=== PATIENT | female | born 1940 | race Caucasian/White ===

== ENCOUNTER 2022-07-24 12:32 | Inpatient (IN) | payer OTHER ==
--- OUTSIDE RECORDS SUMMARY | 2022-07-24 12:35 | XMS REPORT | Continuity of Care Document ---
:[address] [facility] t Address [address] [place] [address]. [address] [place] [address] Care Team Providers Name Role Phone ISABELLE MILES MD Primary Care Physician Anna Enrique RN Attending Clinician KEYONNA YUAN Attending Clinician Unavailable UNKNOWN, ATTENDING Attending Clinician Unavailable Zoe Patterson Attending Clinician Catherine Guerra Attending Clinician MAGGY FRANCO Attending Clinician Unavailable Payers Payer Name Policy Type Policy Effective Date Expiration Date Sour ce Number AETNA MEDICARE [id number] 2019 ADV 00:00:00 Aetna Medicare [id number] [address] [facility] [address] [facility] Problems Condition Condition Condition Status Onset Resolution Last Treating Co mments Source Name Details Category Date Date Treatment Clinician Date Pneumonia Pneumonia Disease Active 2020 Uni vers due to due to 11-13 ity of COVID-19 COVID-19 00:00: [place] virus virus [address] [place] [address] Essential Essential Disease Active 2020- Uni vers hypertensi hypertensi 11-13 it y of on on 00:00: [address] Branch Other Other Disease Active 2020- Univers hyperlipid hyperlipid 11-13 it y of emia emia 00:00: [address] Hypoxia Hypoxia Disease Active 2020- Univers 7-06 ity of 00:00: [place] 00 Medical Branch Acute Acute Disease Active [facility] respirator respirator 7 it y of y failure y failure 00:00: [place] with with 00 Medical hypoxia hypoxia Branch Breast Breast Disease Active Overview: Univer s cancer cancer s/p ity of double [place] mastectom Medical y Branch No known No known Disease Unive rs active active ity of problems problems [place] [facility] 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 Active Problem 09/22/2018 Vamshi Meyers AVNRT (AV AVNRT (AV Diagnosis Active 2018-09-22 Memoria mariusz mariusz 02:45:19 l re-entry re-entry Adam n tachycardi tachycardi a) a) Active Diagnosis 09/22/2018 Vamshi Meyers 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 [place] extremitie extremitie s with s with other other complicati complicati ons ons Active Diagnosis 09/22/2018 Vamshi Meyers 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 M emoria tic 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 Active Problem 09/22/2018 Vamshi Meyers 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 Active Problem 09/22/2018 Vamshi Meyers Essential Essential Diagnosis Active 2018-09-22 Memoria hypertensi hypertensi 02:45:19 l on on Active [place] Diagnosis 09/22/2018 Vamshi Meyers Palpitatio Palpitati Diagnosis Active 2018-09-22 Memoria ns ons Active 02:45:19 l Diagnosis [place] 09/22/2018 Vamshi Meyers Abnormal Abnormal Diagnosis Active 2018-09-22 Memoria EKG EKG Active 02:45:19 l Diagnosis [place] 09/22/2018 Vamshi Meyers Venous Venous Diagnosis Active 2018-09-22 Me moria insufficie insufficie 02:45:19 l ncy ncy Active Adam n Diagnosis 09/22/2018 Vamshi Meyers Precordial Precordia Diagnosis Active 2018-09-22 Memoria pain l pain 02:45:19 l Active [place] Diagnosis 09/22/2018 Vamshi Meyers Non morbid Non Diagnosis Active 2018-09-22 Memoria obesity morbid 02:45:19 l due to obesity [place] excess due to calories excess calories Active Diagnosis 09/22/2018 Vamshi 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 Active Problem 09/22/2018 Vamshi Meyers Exertional Exertiona Problem Active 2018-09-22 Memoria dyspnea l dyspnea 02:45:19 l Active [place] Problem 09/22/2018 Vamshi Meyers 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 02:45:19 l Active [place] Problem 09/22/2018 Vamshi Meyers History of History Problem Active 2018-09-22 Memoria VT of [place] 02:45:19 l (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 ) ) Active Problem 09/22/2018 Vamshi Meyers Patient Patient Diagnosis Active 2018-09-22 Memoria unable to unable to 02:45:19 l exercise exercise Adam n Active Diagnosis 09/22/2018 Vamshi Meyers Allergies, Adverse Reactions, Alerts Allergy Allergy Status Severity Reaction(s) Onset Inactive Treating Comm ents Source Name Type Date Date Clinician Codeine Propensi Active Hallucinatio 2020-0 U nivers ty to ns 6 ity of adverse 00:00: [place] reaction 00 Medical s Branch Meperidi Propensi Active Hallucinatio 2020-0 Univers ne ty to ns 11-05 ity of adverse 00:00: [place] reaction 00 Medical s Branch Penicill Propensi Active Hives 2019-0 Univer s in ty to 11-05 ity of adverse 00:00: [place] reaction 00 Medical s Branch CODEINE DRUG Active Hallucinates 2019-0 Uni vers INGREDI 11-05 ity of 00:00: [place] 00 Medical Branch MEPERIDI DRUG Active Hallucinates 2020-0 Un linda NE INGREDI 11-05 ity of 00:00: [place] 00 Medical Branch PENICILL DRUG Active Hives Univers IN INGREDI 11-05 ity of 00:00: [place] 00 Medical Branch Metformi Metformi Active Diarrhea Phillip rosa n HCl n HCl 2-22 l 00:00: [place] 00 Codeine Codeine Active Info Not Memori a Available 3-09 l 00:00: [place] 00 Codeine Allergy Active [facility] NO KNOWN Drug Active Univers ALLERGIE Class ity of S [facility] Social History Social Habit Start Date Stop Date Quantity Comments Source Sex Assigned At [facility] Exposure to Yes [facility] SARS-CoV-2 (event) [facility] Alcohol intake 2019-11-14 2019-11-14 [facility] 00:00:00 00:00:00 Medical [place] Smoking Status Start Date Stop Date Source Unknown if ever smoked [facility] Former smoker 2019-11-14 00:00:00 2019-11-14 00:00:00 [facility] Medications Ordered Filled Start Stop Current Ordering Indication Dosage Frequency Signature Comments Components Source Medication Medication Date Date Medication? Clinician (SIG) Name Name aspirin 81 2019-0 Yes [id number] 81mg Take 1 Univers mg chewable 7-10 tablet by ity of tablet 00:00: mouth [place] 00 daily with Medical breakfast. Branch cholecalcif 2019-0 Yes [id number] 2000U Take 2 Univers arthur, 7-10 tablets by ity of vitamin D3, 00:00: mouth [place] 25 mcg 00 daily. Medical (1,000 Branch unit) tablet busPIRone 2019-0 Yes 15mg Take 15 mg Un linda 15 mg 7-09 by mouth 2 ity of tablet 23:10: (two) [place] 37 times Medical daily. Branch clopidogreL 2019-0 Yes 75mg Take 75 mg Univers 75 mg 7-09 by mouth ity of tablet 23:10: daily. [address] omeprazole 2019-0 Yes 20mg Take 20 mg U nivers 20 mg 7-09 by mouth ity of capsule 23:10: daily. [address] metoprolol 2019-0 Yes 12.5mg Take 12.5 Univers tartrate 25 7-09 mg by ity of mg tablet 23:10: mouth [place] 37 daily. Medical Branch escitalopra 2020-0 Yes 10mg Take 10 mg Univers m oxalate 7-09 by mouth ity of 10 mg 23:10: at [place] tablet 37 bedtime. Medical Branch lisinopril- 2020-0 Yes 1{tbl} Take 1 Un linda hydrochloro 7-09 tablet by ity of thiazide 23:10: mouth [place] 10-12.5 mg 37 daily. Medical per tablet Branch donepezil 2020-0 Yes 10mg Take 10 mg Un linda 10 mg 7-09 by mouth ity of tablet 23:10: at [place] 37 bedtime. Medical Branch memantine 2019-0 Yes 5mg Take 5 mg Uni vers (NAMENDA) 5 7-09 by mouth 2 it y of mg tablet 23:10: (two) [place] 37 times Medical daily. Branch ascorbic 2020-0 Yes [id number] 500mg Take 1 U nivers acid, 7- tablet by ity of vitamin C, 00:00: mouth [place] 500 mg 00 daily. Medical tablet Branch lactobacill 2019-0 Yes [id number] 1{tbl} Take 1 Univers us 7- tablet by ity of acidophilus 00:00: mouth 2 Félix as 25 million 00 (two) Medical cell -100 times Branch mg captab daily. zinc 2020-0 Yes [id number] 220mg Take 1 Unive rs sulfate 220 7- capsule by it y of (50) mg 00:00: mouth [place] capsule 00 daily. Medical Branch dexAMETHaso 2019-0 Yes [id number] 4mg Take 1 Univers ne 4 mg 7- tablet by ity of tablet 00:00: mouth [place] 00 daily. Medical Branch KCL 20 mEq 2020-0 2020- No [id number] 40meq Take 2 Univers tablet 11-15 07-15 tablets by ity of 00:00: 04:59 mouth [place] 00 :00 daily for Medical 5 days. Branch albuterol 2019-0 Yes [id number] 2{puff} Inhale 2 Univers 90 6-29 Puffs ity of mcg/actuati 00:00: every 6 Félix as on inhaler 00 (six) Medical hours as Branch needed for Shortness of Breath. albuterol 2019-0 Yes [id number] 2{puff} Inhale 2 Univers 90 6-29 Puffs ity of mcg/actuati 00:00: every 6 Félix as on inhaler 00 (six) Medical hours as Branch needed for Shortness of Breath. albuterol Yes [id number] 2{puff} Inhale 2 Univers 90 6-29 Puffs ity of mcg/actuati 00:00: every 6 Félix as on inhaler 00 (six) Medical hours as Branch needed for Shortness of Breath. albuterol Yes [id number] 2{puff} Inhale 2 Univers 90 6-29 Puffs ity of mcg/actuati 00:00: every 6 Félix as on inhaler 00 (six) Medical hours as Branch needed for Shortness of Breath. Escitalopra Yes Mohamed 1 tablet Memoria m Oxalate 5-16 [place]i l 02:45: [place] [id number] Yes Mohamed not Phillip rosa 5-16 [place] defined l 02:45: [place] Aspirin Yes Mohamed 1 tablet Mem oria Adult Low 5-16 [place] l Strength 02:45: [place] Oxybutynin Yes Mohamed 1 tablet Memoria Chloride 5-16 [place] l 02:45: [place] Levocetiriz Yes Mohamed 1 tablet Memoria ine 5-16 [place] in the l Dihydrochlo 02:45: evening Her [address] 19 Lisinopril- 2018- Yes Mohamed 1 tablet Memoria Hydrochloro 5-16 [place] l thiazide 02:45: [place] Plavix Yes Mohamed 1 tablet Phillip rosa 5-16 [place] l 02:45: [place] Metoprolol Yes Mohamed 1/2 half Memoria Tartrate 5-16 [place] tablet l 02:45: [place] Atorvastati Yes Mohamed 1 tablet Memoria n Calcium 5-16 [place] l 02:45: [place] BusPIRone Yes Ahmad 1 tablet Mem oria HCl 5-16 [place] l 02:45: [place] 10 Oxybutynin 2016- Yes Mohamed 1 tablet Memoria Chloride 9-02 [place] l 02:46: [place] 44 Venlafaxine Yes Mohamed 1 capsule Memoria HCl ER 01-09 [place] with food l 02:46: 44 Omeprazole Yes Mohamed 1 capsule Memoria 01-09 [place] l 02:46: 44 GlipiZIDE Yes Mohamed 1 tablet M emoria ER 01-09 [place] l 02:46: Je[place] 44 Losartan Yes Mohamed 1 tablet Me moria Potassium-H 01-09 Jer[place]i l CTZ 02:46: 44 [id number] Yes Mohamed not Phillip rosa 01-09 Jeroudi defined l 02:46: 44 Aspirin Yes Mohamed 1 tablet Mem oria Adult Low 01-09 [place] l Strength 02:46: 44 Aspirin Aspirin Yes [address] [facility] (Valeriano) 81 (Valeriano) 81 Antolin es Mg Mg Patient Tablet. Tablet. Medic al Center Gabapentin Gabapentin Yes [address] 300 Mg 300 Mg [facility] Capsule Capsule Patient [facility] Lansoprazol Lansoprazol Yes [address] [facility] (Prevacid) (Prevacid) Pat ient 30 Mg 30 Mg Medical Capsule. Capsule. Tess ter Losartan/Hy Losartan/Hy Yes [address] drochloroth drochloroth L ukes iazide iazide Patient (Hyzaar (Hyzaar Medical 50-12.5 50-12.5 Center Tablet) 1 Tablet) 1 Each Tablet Each Tablet Metformin Metformin Yes [address] [facility] Hcl 1,000 Hcl 1,000 Day [facility] Mg Tablet Mg Tablet [facility] Metformin Metformin Yes Daily [facility] Hcl 1,000 Hcl 1,000 [facility] Mg Tablet Mg Tablet [facility] Oxybutynin Oxybutynin Yes [facility] Chloride 5 Chloride 5 Antolin es Mg Tablet Mg Tablet [facility] Oxybutynin Oxybutynin Yes Twice A [facility] Chloride Chloride Day [facility] (Ditropan (Ditropan [facility] Xl) 5 Mg Xl) 5 Mg Medical Tab.er.24 Tab.er.24 Cente r Venlafaxine Venlafaxine Yes Daily [facility] Hcl [facility]cl [facility] (Effexor (Effexor Patient Xr) 75 Mg Xr) 75 Mg Medic al Cap.er.24h Cap.er.24h Tess ter Darifenacin Darifenacin Daily [facility] Hydrobromid Hydrobromid -10 [facility] e (Enablex) e (Enablex) 00:00 Patient 7.5 Mg 7.5 Mg :00 Medical Tab.sr.24h, Tab.sr.24h, C enter 1 Tab Oral 1 Tab Oral Duloxetine Duloxetine Daily [facility] Hcl Hcl -10 [facility] (Cymbalta) (Cymbalta) 00:00 Pa tient 60 Mg 60 Mg :00 Medical Capsule., Capsule., C enter 1 Tab Oral 1 Tab Oral Fexofenadin Fexofenadin Daily [facility] e Hcl e Hcl 08-17 [facility] (Kaylah (Kaylah 00:00 Patien t Allergy) 60 Allergy) 60 :00 M edical Mg Tablet, Mg Tablet, Tess ter 1 Tab Oral 1 Tab Oral Losartan/Hy Losartan/Hy Daily [facility] drochloroth drochloroth 08-17 [facility] iazide iazide 00:00 Patient (Losartan-H (Losartan-H :00 M edical ctz 50-12.5 ctz 50-12.5 C enter Mg Tab) 1 Mg Tab) 1 Each Each Tablet, 1 Tablet, 1 Tab Oral Tab Oral Vital Signs Vital Name Observation Time Observation Value Comments Source [facility] 2018-02-22 19:30[facility] 2018-02-22 19:30:00 [facility] [place] Temperature Oral (F) 2018-02-22 19:30:00 97.4 F [facility] [place] Heart Rate 2018-02-22 19:30:00 [facility] [place] Diastolic (mm Hg) 2018-02-22 19:30:00 Mem orial [place] Systolic (mm Hg) 2018-02-22 19:30:00 Phillip rial [place] Weight 2017-11-22 20:00:00 [facility] [place] Height 2017-11-22 20:00:00 [facility] [place] Temperature Oral (F) 2017-11-22 20:00:00 98.2 F [facility] [place] Heart Rate 2017-11-22 20:00:00 [facility] [place] Diastolic (mm Hg) 2017-11-22 20:00:00 Mem orial [place] Systolic (mm Hg) 2017-11-22 20:00:00 Phillip rial [place] Weight 2017-08-02 19:00:00 [facility] [place] Height 2017-08-02 19:00:00 [facility] [place] Temperature Oral (F) 2017-08-02 19:00:00 98.3 F [facility] [place] Heart Rate 2017-08-02 19:00:00 [facility] [place] Diastolic (mm Hg) 2017-08-02 19:00:00 Mem orial [place] Systolic (mm Hg) 2017-08-02 19:00:00 Phillip rial [place] Weight 2017-07-01 19:30:00 [facility] [place] Height 2017-07-01 19:30:00 [facility] [place] Temperature Oral (F) 2017-07-01 19:30:00 97.6 F [facility] [place] Heart Rate 2017-07-01 19:30:00 [facility] [place] Diastolic (mm Hg) 2017-07-01 19:30:00 Mem orial [place] Systolic (mm Hg) 2017-07-01 19:30:00 Phillip rial [place] Weight 2015-07-17 18:00:00 [facility] [place] Height 2015-07-17 18:00:00 [facility] [place] Temperature Oral (F) 2015-07-17 18:00:00 96.1 F [facility] [place] Heart Rate 2015-07-17 18:00:00 [facility] [place] Diastolic (mm Hg) 2015-07-17 18:00:00 Mem orial [place] Systolic (mm Hg) 2015-07-17 18:00:00 Phillip rial [place] Weight 2015-06-27 19:00:00 [facility] [place] Height 2015-06-27 19:00:00 [facility] [place] Temperature Oral (F) 2015-06-27 19:00:00 97.8 F [facility] [place] Heart Rate 2015-06-27 19:00:00 [facility] [place] Diastolic (mm Hg) 2015-06-27 19:00:00 Mem orial [place] Systolic (mm Hg) 2015-06-27 19:00:00 Phillip rial [place] Procedures Procedure Date / Time Performed Performing Clinician Sourc e XR CHEST 2 VW COVID 2019-11-06 14:41:41 Sammy Longayru [facility] Magnetic resonance 2017-09-10 00:00:00 MAGGY FRANCO [facility] Patient imaging of lumbar [facility] Center spine without contrast Encounters Start End Encounter Admission Attending Care Care Encounter Source Date/Time Date/Time Type Type Clinicians Facility Department ID 2022-07-24 Outpatient [id number] Memoria 12:34:40 [id number] [place] [id number] 2021-03-07 Emergency [facility] [id number] [facility] 04:54:20 ity [facility] 2019-11-17 2019-11-17 Transition Adele Enrique [id number] 00:00:00 00:00:00 of Care Anna Whalen [id number] [place] [id number] [id number] [facility] 2019-11-17 2019-11-17 Transition Adele Enrique [id number] Univers 00:00:00 00:00:00 of Care Anna Whalen [id number] it y of [place] [id number] [id number] [address] 2019-11-13 2019-11-13 Outpatient R KEYONNA YUAN [facility] [id number] Univers 16:00:00 16:00:00 ity [facility] 2019-11-13 2019-11-13 Outpatient R LAURA, [facility] [id number] Univers 13:15:00 13:15:00 ATTENDING ity [facility] 2019-11-07 2019-11-07 Telephone Kaity [facility] [id number] 00:00:00 00:00:00 [facility] [id number] [place] [id number] [facility] [id number] Primary & 370 Specialty Care 2019-11-07 2019-11-07 Telephone [facility] [id number] 00:00:00 00:00:00 Rania HEALTH [id number] [place] [id number] [facility] [id number] Primary & 370 Specialty Care 2019-11-07 2019-11-07 Telephone [facility] [id number] Univers 00:00:00 00:00:00 Rania HEALTH [id number] it y of [place] [id number] [facility] [id number] [facility] Primary & 370 Branch Specialty Care 2019-11-07 2019-11-07 Telephone [facility] [id number] Univers 00:00:00 00:00:00 Rania HEALTH [id number] it y of [place] [id number] [facility] [id number] [facility] Primary & 370 Branch Specialty Care 2019-11-06 2019-11-06 [facility] [id number] 09:26:00 23:59:00 [facility] [id number] [facility] [id number] [id number] [address] ([facility]) 2019-11-06 2019-11-06 [facility] [id number] Univers 09:26:00 23:59:00 [facility] [id number] [facility] [id number] [facility] [id number] [address] ([facility]) 2019-11-06 2019-11-06 Outpatient R UNKNOWN, [facility] [id number] Univers 09:00:00 09:00:00 ATTENDING ity of [facility] 2018-02-22 2018-02-22 Outpatient Vasmhi Goldstein [id number] eClinic 14:30:00 14:30:00 Mira [place] 2018-01-24 2018-02-06 Discharged [facility] [id number] 10:07:00 23:59:[address] 2017-11-22 2017-11-22 Outpatient Vamshi Goldstein [id number] eClinic 15:00:00 15:00:00 Mira [place] 2017-11-11 2017-11-11 Outpatient Vamshi Bonds O [id number] eClinic 16:27:00 16:27:00 Mira [place] 2017-09-10 2017-09-10 Registered HANSA FRANCO, [facility] [id number] 13:32:00 13:32:[address] 2017-08-02 2017-08-02 Outpatient Vamshi Bonds O [id number] eClinic 14:00:00 14:00:00 Mira [place] 2017-07-01 2017-07-01 Outpatient Vamshi Bonds O [id number] eClinic 14:30:00 14:30:00 Mira [place] 2015-07-17 2015-07-17 Outpatient Vamshi Bonds O [id number] eClinic 13:00:00 13:00:00 Mira [place] 2015-06-27 2015-06-27 Outpatient Vamshi Bonds O [id number] eClinic 14:00:00 14:00:00 Mira [place] Results Test Test Test Results Result Source Description Time Comments Comments XR CHEST 2 VW 2019-10 Trace bilateral pleural University COVID -29 effusions. Disclaimer: [facility] 20:46:2 Generally, the findings on Medical 2 chest imaging in COVID-19 are Branch notspecific, and overlap with other infections, including influenza, H1N1,SARS and MERS.According to the Centers for Disease Control (CDC) and recent statement ofthe [employer], viral testing remains the only specificmethod of diagnosis. Confirmation with the viral test is required, even ifradiologic findings are suggestive of COVID-[address]. Preliminary Report Dictated by Resident: Martina Longoria MD., have reviewed this study and agree with theabove report.XR CHEST 2 VW COVID Comparison: None available History: cough and sob Findings: Mild bibasilar linear opacities are noted suggesting atelectasis. No focalconsolidation, or pneumothorax is identified. Trace bilateral pleuraleffusions. The cardiomediastinal silhouette is normal in size. Atheroscleroticossifications are noted in the aortic arch. No acute osseous abnormality is present. Surgical clips are scattered overthe right axillary soft tissues. [facility], Radiant Results Inft User - 11/06/2019 3:47 PM CDTXR CHEST 2 VW COVIDComparison: None availableHistory: cough and sob Findings:Mild bibasilar linear opacities are noted suggesting atelectasis. No focalconsolidation, or pneumothorax is identified. Trace bilateral pleuraleffusions.The cardiomediastinal silhouette is normal in size. Atheroscleroticossifications are noted in the aortic arch.No acute osseous abnormality is present. Surgical clips are scattered overthe right axillary soft tissues.IMPRESSIONTrace bilateral pleural effusions.Disclaimer: Generally, the findings on chest imaging in COVID-19 are notspecific, and overlap with other infections, including influenza, H1N1,SARS and MERS.According to the Centers for Disease Control (CDC) and recent statement ofthe [employer], viral testing remains the only specificmethod of diagnosis. Confirmation with the viral test is required, even ifradiologic findings are suggestive of COVID-[address]Preliminary Report Dictated by Resident: Martina Arana MD., have reviewed this study and agree with theabove report. MRI SPINE [place] [address] Patient Name: CALIXTO LANG MR #: [id number] : 1940 Age/Sex: 76/F Req #: [id number] Adm Physician: Ordered by: MAGGY FRANCO MD Report #: [id number] Location: MRI Room/Bed: Procedure: [id number] MRI/MRI SPINE LUMBAR WO Exam Date: Exam Time: REPORT STATUS: Signed EXAMINATION: MRI of the lumbar spine without contrast HISTORY: Low back pain for the last 3 months. COMPARISON: None. TECHNIQUE: Sagittal T1, T2, STIR; axial T2 and proton density. FINDINGS: It is assumed that there are 5 lumbar vertebrae. Curvature/Alignment: Normal distal lumbar lordosis, mild thoracolumbar kyphotic malalignment. Grade 1 retrolisthesis at T12-L1, L1 to and minimal anterolisthesis at L3-L4 and L5-S1. Subtle levoscoliosis. Vertebrae: No evidence of recent fracture, infection, or neoplasm. Conus: Normal, terminating at L2 Cauda equina: Mild crowding at L1-2 and L2-L3 due to canal stenosis. Lower thoracic: Mild spondylosis without significant stenosis. Paraspinal soft tissues: Severe atrophy of the paraspinal muscles. Degenerative changes: L1-L2: Decreased disc height and T2 signal intensity, symmetric disc osteophyte and bilateral facet arthrosis. Moderately severe spinal canal and bilateral foraminal stenosis. L2-L3: Decreased disc height and T2 signal intensity, symmetric this pole which, ligamenta flava thickening of facet arthrosis. Moderate spinal canal and bilateral foraminal stenoses. L3-L4: Decreased disc height and T2 signal intensity, slightly asymmetric to the right is posterior, ligamenta flava thickening and facet arthrosis. Mild spinal canal and mild to moderate bilateral foraminal stenosis. L4-L5: Decreased disc height and T2 signal intensity, symmetric disc osteophyte and facet arthrosis. Moderate bilateral foraminal stenoses. L5-S1: Decreased disc height and signal intensity, mild symmetric disc bulge, prominent facet arthrosis. Minimal bilateral foraminal stenosis. Sacroiliac joints: Bilateral degenerative changes with bridging osteophytes in the right side. IMPRESSION: 1. Mild thoracolumbar kyphotic malalignment and minimal multilevel degenerative spondylolisthesis as above. 2. Moderately severe degenerative spinal canal and bilateral foraminal stenosis at L1-L2. 3. Moderate degenerative spinal canal and bilateral foraminal stenosis at L2-L3. 4. Mild degenerative spinal canal and moderate foraminal stenoses at L3-L4. 5. Moderate degenerative foraminal stenosis at L4-L5. Signed by: Dr. Nicky Ratliff M.D. on 09/13/2017 7:18 AM Dictated By: NICKY RATLIFF MD 7 Transcribed By: XUAN on 09/13/17717 COPY TO: MAGGY FRANCO MD
--- NOTE | 2022-07-24 12:54 | RAD REPORT ---
EXAM DESCRIPTION: CT - CTHCSPWOC - 07/24/2022 12:45 pm CLINICAL HISTORY: Trauma, head and neck injury. PAIN COMPARISON: No comparisons TECHNIQUE: Axial 5 mm thick images of the head were obtained. Axial 2 mm thick images of the cervical spine were obtained with sagittal and coronal reconstruction images generated and reviewed. All CT scans are performed using dose optimization technique as appropriate and may include automated exposure control or mA/KV adjustment according to patient size. FINDINGS: CT HEAD WITHOUT CONTRAST: No acute hemorrhage, hydrocephalus or extra-axial collection is identified.Mild generalized brain atr ophy is present with mild periventricular and deep white matter chronic microvascular ischemic change s.No areas of brain edema or midline shift. Inspissated mucus is seen right maxillary antrum.The calvarium is intact. CT CERVICAL SPINE WITHOUT CONTRAST: No fracture or subluxation.Moderate midcervical degenerative changes. 3 mm degenerative anterolisthes is C2 on C3.No prevertebral soft tissues swelling is identified. IMPRESSION: No acute intracranial or cervical spine findings. Moderate midcervical degenerative changes.
[2022-07-24 13:43] LABS: Absolute Lymphocytes (CBC) 0.8 K/uL (0.7-4.9); Hematocrit 40.4 % (36.0-45.0); Lymphocytes % 17.7 % (15.3-44.8); MCV 89.4 fL (80-100); MPV 7.6 fL (7.6-11.3); RBC Red Blood Cell Count 4.52 M/uL (3.86-4.86)
[2022-07-24 14:35] LABS: Potassium 2.7 mEq/L (3.5-5.1); Troponin High Sensitivity 7.7 pg/mL (<58.9)
[2022-07-24] MEDS ORDERED: POTASSIUM CL SA 10 MEQ TAB PO ONE (14:52)
[2022-07-24] MEDS ORDERED: NA CHLORIDE 0.9% 1,000 ML ONE (14:52)
--- NOTE | 2022-07-24 14:58 | ER ---
Nurse's Notes [facility] Name: Deborah Dumont Age: 81 yrs Sex: Female : 1940 Arrival Date: 07/24/2022 Time: 12:33 Bed 19 Private MD: Diagnosis: Fall on same level from slipping, tripping and stumbling without subsequent striking against object;Dizziness and giddiness;Unspecified injury of head, initial encounter;Hypokalemia;Hyponatremia Presentation: 07/24 12:34 Chief complaint: EMS states: Fall from standing just prior to arrival at [facility]. Denies LOC. Hit back of head. +blood thinners. Care prior to arrival: None. Mechanism of Injury: Fall from standing position. Trauma event details: Injury occurred: [facility]. 12:34 Acuity: MUKUND 2 12:34 Method Of Arrival: EMS: [facility] 12:36 Coronavirus screen: Client denies travel out of the [place] in the last 14 days. Ebola ss Screen: Patient denies exposure to infectious person. Patient denies travel to an Ebola-affected area in the 21 days before illness onset. Initial Sepsis Screen: Does the patient meet any 2 criteria? No. Patient's initial sepsis screen is negative. Does the patient have a suspected source of infection? No. Patient's initial sepsis screen is negative. Risk Assessment: Do you want to hurt yourself or someone else? Patient reports no desire to harm self or others. Onset of symptoms was July 24, 2022. Trauma Activation: Alert Physician: ED Physician; Name: ; Notified At: ; Arrived At: Physician: General Surgeon; Name: ; Notified At: ; Arrived At: Physician: Radiology; Name: ; Notified At: ; Arrived At: Physician: Respiratory; Name: ; Notified At: ; Arrived At: Physician: Lab; Name: ; Notified At: ; Arrived At: Trauma Activation: Alert Physician: ED Physician; Name: ; Notified At: ; Arrived At: Physician: General Surgeon; Name: ; Notified At: ; Arrived At: Physician: Radiology; Name: ; Notified At: ; Arrived At: Physician: Respiratory; Name: ; Notified At: ; Arrived At: Physician: Lab; Name: ; Notified At: ; Arrived At: Historical: - Allergies: 13:26 Codeine; kc6 - PMHx: 13:26 Dementia; Alzheimer's disease; kc6 - Immunization history: Last tetanus immunization: unknown. - Social history:: Smoking status: unknown. Screenin:00 Abuse screen: Denies threats or abuse. Denies injuries from another. ss 12:30 Tuberculosis screening: No symptoms or risk factors identified. kc6 13:26 [facility] ED Fall Risk Assessment (Adult) History of falling in the last 3 months, kc6 including since admission Yes- single mechanical fall (1 pt) Confusion or Disorientation Yes (5 pts) Intoxicated or Sedated No (0 pts) Impaired Gait No (0 pts) Mobility Assist Device Used No (0 pt) Altered Elimination No (0 pt) Score/Fall Risk Level 3 or more points = High Risk Oriented to surroundings, Maintained a safe environment, Educated pt \T\ family on fall prevention, incl call for assistance when getting out of bed, Assessed \T\ reinforced patient's understanding of fall precautions, Hourly rounding (assess needs \T\ fall precautionary measures) done. Nutritional screening: No deficits noted. Primary Survey: 12:00 NO uncontrolled hemorrhage observed. A: The client is awake and alert. The airway is ss patent. Disability Client is alert. 12:30 Breathing/Chest: Spontaneous respiratory effort, equal unlabored respirations, breath kc6 sounds clear bilaterally, regular pattern, symmetrical chest rise and fall. Circulation: No external hemorrhage present. Regular and strong central pulse, skin warm/dry/normal color. Exposure/Environment: There is no evidence of uncontrolled external bleeding. A warming method has been applied: A warm blanket has been provided to the patient. 14:25 Reassessment Alertness and Airway: Awake and alert. The airway is patent. Breathing: kc6 Spontaneous respiratory effort, equal unlabored respirations, breath sounds clear bilaterally, regular pattern with symmetrical chest rise and fall. Circulation: No external hemorrhage noted. Regular and strong central pulse, skin warm/dry/normal color. Disability: Pupils Pupils are equal, round, reactive to light and accomodation. Secondary Survey: 12:30 HEENT: No deficits noted. Gastrointestinal: No deficits noted. : No signs and/or kc6 symptoms were reported regarding the genitourinary system. Musculoskeletal: No signs and/or symptoms reported regarding the musculoskeletal system. Circulation, motion, and sensation intact. Capillary refill < 3 seconds, Range of motion: intact in all extremities. Assessment: 12:30 General: Appears in no apparent distress. uncomfortable, Behavior is calm, cooperative, kc6 appropriate for age. Pain: Complains of pain in head. 12:30 Neuro: [place] Agitation-Sedation Scale (RASS): 0 - Alert and Calm Level of kc6 Consciousness is awake, alert, obeys commands, Oriented to person, situation, Appropriate for age. Cardiovascular: Capillary refill < 3 seconds Rhythm is sinus bradycardia. Respiratory: Airway is patent Trachea midline Respiratory effort is even, unlabored, Respiratory pattern is symmetrical, tachypnea Breath sounds with wheezes bilaterally. GI: No signs and/or symptoms were reported involving the gastrointestinal system. : No signs and/or symptoms were reported regarding the genitourinary system. EENT: No signs and/or symptoms were reported regarding the EENT system. Derm: Skin is intact, Skin is pink, warm \T\ dry. Musculoskeletal: No signs and/or symptoms reported regarding the musculoskeletal system. Circulation, motion, and sensation intact. Capillary refill < 3 seconds, Range of motion: intact in all extremities. 12:39 Reassessment: Pt to CT now VIA EMS stretcher. ss Vital Signs: 12:30 BP 110 / 47; Pulse 63; Resp 21 S; Pulse Ox 99% on 2 lpm NC; Weight 85.28 kg (M); Height kc6 5 ft. 6 in. (R); 14:26 BP 127 / 69; Pulse 56; Resp 16 S; Pulse Ox 98% on 2 lpm NC; kc6 12:30 Body Mass Index 30.34 (85.28 kg, 167.64 cm) kc6 [place] Coma Score: 12:30 Eye Response: spontaneous(4). Motor Response: obeys commands(6). Verbal Response: kc6 confused(4). Total: 14. Trauma Score (Adult): 12:30 Eye Response: spontaneous(1); Verbal Response: confused(1); Motor Response: obeys kc6 commands(2); Systolic BP: > 89 mm Hg(4); Respiratory Rate: 10 to 29 per min(4); Bulmaro Score: 14; Trauma Score: 12 ED Course: 12:30 Patient has correct armband on for positive identification. Bed in low position. Call kc6 light in reach. Side rails up X2. 12:30 Oxygen administration via nasal cannula \T\ 2L/min. kc6 12:33 Patient arrived in ED. ss 12:36 Rekha Rubin FNP-C [facility] kb 12:36 Prashant De Los Santos MD is Attending Physician. kb 12:36 Triage completed. ss 12:36 Arm band placed on right wrist. ss 12:46 CT Head C Spine In Process Unspecified. EDMS 12:56 Evelyn Dsouza, RN is Primary Nurse. kc6 13:27 Thermoregulation: warm blanket given to patient. kc6 13:45 Inserted saline lock: 20 gauge in right antecubital area, using aseptic technique. kc6 Blood collected. 14:57 Edwin Ewing MD is Hospitalizing Provider. kb Administered Medications: 14:51 Drug: NS 0.9% IV 1000 ml Route: IV; Rate: 75 ml/hr; Site: right antecubital; kc6 14:52 Drug: Potassium Chloride PO 40 mEq Route: PO; kc6 Outcome: 14:58 Decision to Hospitalize by Provider. kb Signatures: Dispatcher [employer] EDNJ Rekha Rubin FNP-C FNP-Rehana Ramirez RN RN Evelyn Dsouza, MIA RN kc6 Corrections: (The following items were deleted from the chart) 12:44 12:00 Trauma Activation: Alert ss 14:25 12:30 General: Appears in no apparent distress. uncomfortable, Behavior is calm, kc6 cooperative, appropriate for age, kc6
--- NOTE | 2022-07-24 14:59 | EDPHYS ---
Physician Documentation [facility] Name: Deborah Dumont Age: 81 yrs Sex: Female : 1940 Arrival Date: 07/24/2022 Time: 12:33 Bed 19 Private MD: ED Physician Prashant De Los Santos Historical: - Allergies: 07/24 13:26 Codeine; kc6 - PMHx: 13:26 Dementia; Alzheimer's disease; kc6 - Immunization history: Last tetanus immunization: unknown. - Social history:: Smoking status: unknown. ROS: 14:42 Constitutional: Negative for fever, chills, and weight loss. kb 14:42 Neuro: Positive for dizziness, headache. 14:42 All other systems are negative. Exam: 14:08 Constitutional: This is a well developed, well nourished patient who is awake, alert, kb and in no acute distress. 14:08 ECG was reviewed by the Attending Physician. Vital Signs: 12:30 BP 110 / 47; Pulse 63; Resp 21 S; Pulse Ox 99% on 2 lpm NC; Weight 85.28 kg (M); Height kc6 5 ft. 6 in. (R); 14:26 BP 127 / 69; Pulse 56; Resp 16 S; Pulse Ox 98% on 2 lpm NC; kc6 12:30 Body Mass Index 30.34 (85.28 kg, 167.64 cm) kc6 [place] Coma Score: 12:30 Eye Response: spontaneous(4). Motor Response: obeys commands(6). Verbal Response: kc6 confused(4). Total: 14. Trauma Score (Adult): 12:30 Eye Response: spontaneous(1); Verbal Response: confused(1); Motor Response: obeys kc6 commands(2); Systolic BP: > 89 mm Hg(4); Respiratory Rate: 10 to 29 per min(4); Bulmaro Score: 14; Trauma Score: 12 MDM: 12:36 Patient medically screened. kb 07/24 12:38 Order name: CT Head C Spine; Complete Time: 12:55 kb 07/24 12:56 Order name: EKG; Complete Time: 12:56 kb 07/24 12:56 Order name: EKG - Nurse/Tech; Complete Time: 13:14 kb 07/24 13:06 Order name: CBC with Diff; Complete Time: 14:03 kb 07/24 13:48 Order name: Labs - recollect needed; Complete Time: 14:04 ss 07/24 13:06 Order name: Basic Metabolic Panel; Complete Time: 14:39 kb 07/24 13:06 Order name: Troponin High Sensitivity; Complete Time: 14:39 kb EC:08 Rate is 56 beats/min. Rhythm is regular. QRS [place] is Normal. LA interval is prolonged kb at 224 msec. QRS interval is normal at 114 msec. QT interval is prolonged at 501 msec. Administered Medications: 14:51 Drug: NS 0.9% IV 1000 ml Route: IV; Rate: 75 ml/hr; Site: right antecubital; kc6 14:52 Drug: Potassium Chloride PO 40 mEq Route: PO; kc6 Disposition: 14:25 Co-signature as Attending Physician, Prashant De Los Santos MD I reviewed the patient's care rt provided by the Advanced Practice Provider and agree with the diagnosis and treatment plan. Disposition Summary: 07/24/22 14:58 Hospitalization Ordered Hospitalization Status: Observation kb Provider: Edwin Ewing Location: Telemetry/MedSurg (observation) kb Condition: Stable kb Problem: new kb Symptoms: are unchanged kb Bed/Room Type: Standard kb Room Assignment: kb Diagnosis - Fall on same level from slipping, tripping and stumbling without subsequent kb striking against object - Dizziness and giddiness kb - Unspecified injury of head, initial encounter kb - Hypokalemia kb - Hyponatremia kb Forms: - Medication Reconciliation Form kb - SBAR form kb Signatures: Dispatcher [employer] Rekha Garcia, FAMILIA SANDHU-Rehana Ramirez RN RN Evelyn Dsouza RN RN kc6 Prashant De Los Santos MD MD rt
[2022-07-24] MEDS ORDERED: IPRATROPIUM BROM 0.5MG/2.5ML ONE (15:05)
[2022-07-24] MEDS ORDERED: ALBUTEROL 2.5 MG/3 ML NEB SOL ONE (15:05)
[2022-07-24 15:50] LABS: SARS-CoV-2 Antigen Rapid Res Negative (Negative)
[2022-07-24] MEDS ORDERED: ONDANSETRON 4 MG/2 ML VIAL IV PRN (16:05)
[2022-07-24] MEDS ORDERED: ACETAMINOPHEN 500 MG TAB PO PRN (16:05)
[2022-07-24 16:07] LABS: Urine Blood Negative (Negative); Urine Glucose Negative (Negative); Urine Protein Negative (Negative)
--- NOTE | 2022-07-24 16:15 | P.HP ---
Certification for Inpatient Patient admitted to: Observation With expected LOS: <2 Midnights Patient will require the following post-hospital care: Prison Practitioner: I am a practitioner with admitting privileges, knowledge of patient current condition, hospital course, and medical plan of care. Services: Services provided to patient in accordance with Admission requirements found in Title 42 Section 412.3 of the Code of Federal Regulations <Abundio Syed - Last Filed: 07/24/22 18:05> Patient History Date of Service: 07/24/22 Reason for admission: Dyzziness, hyponatremia, hypokalemia, fall History of Present Illness: This is an 81-year-old female with past medical history significant for dementia and Alzheimer's. Patient was brought into the emergency room from [facility] for complaints of dizziness,/fall. Patient was evaluated in the ED, unable to obtain history due to patient's baseline dementia. In the ED her lab was significant for hyponatremia with sodium of 125 and hypokalemia with potassium of 2.7. Urinalysis was ordered and patient was found to have a UTI. Patient will be admitted under the care of Dr. Ewing. - Past Medical/Surgical History Past Medical History: Unable to obtain Past Surgical History: Unable to obtain - Social History Smoking Status: Unknown if ever smoked Place of Res[place] <Abundio Syed - Last Filed: 07/24/22 18:05> Date of Service: 07/24/22 <Edwin Ewing - Last Filed: 07/24/22 19:16> Allergies codeine Allergy (Unknown, Unverified 07/24/22 16:25) UNKNOWN Review of Systems is unable to be obtained <Abundio Syed - Last Filed: 07/24/22 18:05> Physical Examination - Vital Signs Blood Pressure: 126/63 Pulse: 61 Respirations: 18 Pulse Ox (%): 100 - Physical Exam General: Confused HEENT: Atraumatic, Normocephalic, PERRLA Neck: Supple Respiratory: Crackles/rales, Expiratory wheezes Cardiovascular: No edema Capillary refill: <2 Seconds Gastrointestinal: Normal bowel sounds Musculoskeletal: No clubbing, No swelling, No contractures Integumentary: No rashes, No breakdown Neurological: Dementia Lymphatics: No axilla or inguinal lymphadenopathy - Studies Laboratory Data (last 24 hrs) 07/24/22 14:03: Sodium 125 L, Potassium 2.7 L, BUN 10, Creatinine 0.58, Glucose 115 H 07/24/22 13:36: WBC 4.80, Hgb 14.1, Hct 40.4, Plt Count 169 <Abundio Syed - Last Filed: 07/24/22 18:05> - Studies Laboratory Data (last 24 hrs) 07/24/22 14:03: Sodium 125 L, Potassium 2.7 L, BUN 10, Creatinine 0.58, Glucose 115 H 07/24/22 13:36: WBC 4.80, Hgb 14.1, Hct 40.4, Plt Count 169 <Edwin wEing - Last Filed: 07/24/22 19:16> Assessment and Plan - Plan Assessment Status post fall UTI Dizziness Hyponatremia Hypokalemia Dementia Alzheimer's Plan Replete potassium Continue IV fluids BMP every 4 Continue IV antibiotics Resume medication from correction once verified Continue nebulizer treatments with IV steroids Continue IV Lasix Chest x-ray pending Nephrology consulted DVT PPX- Lovenox Discharge Plan: [place]-Way Plan to discharge in: 48 Hours - Advance Directives Does patient have a Living Will: No Does patient have a Durable POA for Healthcare: No Critical Care: No Time Spent Managing Pts Care (In Minutes): 50 <Abundio Syed - Last Filed: 07/24/22 18:05> Physician Review: Patient Assessed, Agree with Above Assessment and Plan <Edwin Ewing - Last Filed: 07/24/22 19:16>
[2022-07-24 16:25] LABS: Specific Gravity 1.008 (1.005-1.030); Urine Bacteria <20 /HPF (<20); Urine Bilirubin NEGATIVE (Negative); Urine Blood Negative (Negative); Urine Clarity Clear (Clear); Urine Color Light-Yellow (Yellow); Urine Crystals Unidentified Few /HPF (None Seen); Urine Glucose NEGATIVE (Negative); Urine Mucus Slight /HPF (None Seen); Urine Protein NEGATIVE (Negative); Urine RBC <5 /HPF (None Seen); Urine Urobilinogen Normal (Normal); Urine WBC Clump Rare /HPF (None Seen); Urine pH 6.5 (5.0-7.0)
[2022-07-24] MEDS ORDERED: INSULIN -REGULAR HUMAN 50 UNIT/0.5 ML ML SQ SCH (16:30)
[2022-07-24] MEDS ORDERED: NA CHLORIDE 0.9% 1,000 ML IV SCH (17:00)
[2022-07-24] MEDS ORDERED: FUROSEMIDE 40 MG/4 ML VIAL IV SCH (17:00)
[2022-07-24 18:23] LABS: Potassium 2.7 mEq/L (3.5-5.1)
--- NOTE | 2022-07-24 19:10 | RAD REPORT ---
EXAM DESCRIPTION: RAD - Chest Single View - 07/24/2022 7:05 pm CLINICAL HISTORY: Wheezing/crackles Chest pain. COMPARISON: No comparisons FINDINGS: Portable technique limits examination quality. Mild pulmonary edema. The heart is mildly to moderately enlarged. No displaced fractures.Right axilla ry dissection. IMPRESSION: Mild CHF versus volume overload.
[2022-07-24] MEDS: ALBUTEROL 2.5 MG/3 ML NEB SOL NEB SCH (19:50)
[2022-07-24] MEDS: METHYLPREDNISOLONE 40 MG INJ IV SCH (20:28)
[2022-07-24] MEDS: CEFTRIAXONE 1,000 MG in NA CHLORIDE 0.9% 50 ML IVPB SCH (20:33)
[2022-07-24 20:53] LABS: Potassium 2.8 mEq/L (3.5-5.1)
[2022-07-24] MEDS ORDERED: ATORVASTATIN 40 MG TAB PO SCH (21:00)
[2022-07-24] MEDS ORDERED: APIXABAN 2.5 MG TABLET PO SCH (21:00)
[2022-07-24] MEDS ORDERED: POTASSIUM 25 MEQ EFFERV TAB PO ONE (23:10)
[2022-07-24] MEDS ORDERED: KCL 20 MEQ/100 mL IVPB 20 MEQ/100 ML BAG IV SCH (23:45)
[2022-07-25] MEDS: ALBUTEROL 2.5 MG/3 ML NEB SOL NEB SCH ×4 (01:35→20:40)
[2022-07-25 01:56] VITALS: BMI 30.1
[2022-07-25] MEDS: METHYLPREDNISOLONE 40 MG INJ IV SCH ×2 (01:59→10:24)
[2022-07-25] MEDS ORDERED: POTASSIUM CL SA 10 MEQ TAB PO ONE (06:28)
[2022-07-25] MEDS ORDERED: KCL 20 MEQ/100 mL IVPB 20 MEQ/100 ML BAG IV SCH (07:00)
[2022-07-25 07:21] LABS: Potassium 3.2 mEq/L (3.5-5.1)
[2022-07-25] MEDS ORDERED: ASPIRIN EC 81 MG TAB PO SCH (09:00)
[2022-07-25] MEDS ORDERED: POTASSIUM 25 MEQ EFFERV TAB PO ONE ×2 (09:00→21:00)
[2022-07-25] MEDS: CEFTRIAXONE 1,000 MG in NA CHLORIDE 0.9% 50 ML IVPB SCH ×2 (10:24→20:35)
[2022-07-25] MEDS: ENOXAPARIN 40 MG/0.4 ML SQ SCH (10:24)
[2022-07-25] MEDS: SPIRONOLACTONE 25 MG TABLET PO SCH (10:25)
--- NOTE | 2022-07-25 12:08 | P.CNS ---
Date of Consult: 07/25/22 Reason for Consult: Hyponatremia, hypokalemia Requesting Physician: Edwin Ewing Primary Care Provider: Sean Chief Complaint: Dyzziness, hyponatremia, hypokalemia, fall History of Present Illness: This is an 81-year-old female who is a poor historian but per the records with past medical history significant for dementia and Alzheimer's. Patient was brought into the emergency room from [facility] for reports of dizziness/fall. In the ED her lab was significant for hyponatremia with sodium of 125 and hypokalemia with potassium of 2.7. Urinalysis was ordered and patient was found to have a UTI. Patient will be admitted under the care of Dr. Ewing. Allergies codeine Allergy (Unknown, Verified 07/25/22 01:57) UNKNOWN Home Medications: Acetaminophen [Tylenol] 2 tab PO Q6H PRN 07/25/22 Atorvastatin Calcium [Lipitor] 20 mg PO BEDTIME 07/25/22 Buspirone HCl [Buspar] 30 mg PO BID 07/25/22 Cholestyramine (with Sugar) [Cholestyramine Packet] 4 gm PO DAILY 07/25/22 Clopidogrel Bisulfate [Plavix] 75 mg PO DAILY 07/25/22 Donepezil HCl [Aricept] 10 mg PO BEDTIME 07/25/22 Escitalopram Oxalate 20 mg PO DAILY 07/25/22 Lisinopril [Zestril] 10 mg PO DAILY 07/25/22 Loperamide HCl [Imodium A-D] 2 mg PO DAILY 07/25/22 Loratadine [Claritin] 10 mg PO DAILY 07/25/22 Lutein/Zeaxanthin [Ocuvite Lutein 25-5 mg Softgel] 1 each PO BID 07/25/22 Mag Hydroxide 8% [Milk Of Magnesia] 30 ml PO DAILY PRN 07/25/22 Melatonin 5 mg PO BEDTIME 07/25/22 Memantine HCl 10 mg PO DAILY 07/25/22 Metoprolol Tartrate 0.5 tab PO DAILY 07/25/22 Multivitamin [Multiple Vitamins] 1 each PO DAILY 07/25/22 Pantoprazole Sodium 1 tab PO DAILY 07/25/22 Vitamin E [E-Vitamin] 400 iu PO DAILY 07/25/22 hydroCHLOROthiazide [Hydrochlorothiazide] 25 mg PO DAILY 07/25/22 - Past Medical/Surgical History Diabetic: No -: dementia -: Alzheimer's -: Arnold mastectomy -: hysterectomy -: appendectomy - Social History Smoking Status: Unknown if ever smoked Place of Residence: [facility] Review of Systems is unable to be obtained (Limited ROS due to pt's underlying dementia) Physical Examination Temp Pulse Resp BP Pulse Ox 97.1 F 78 14 153/80 H 97 07/25/22 08:00 07/25/22 10:25 07/25/22 08:00 07/25/22 10:25 07/25/22 08:00 General: In no apparent distress, Cooperative HEENT: Atraumatic, Normocephalic Neck: Supple Respiratory: Other (Poor resp effort, poor air entry into lower lung ketn, scattered wheezes) Cardiovascular: No edema, Regular rate/rhythm Gastrointestinal: Soft and benign, Non-distended, No tenderness Musculoskeletal: No swelling, No contractures Integumentary: No warmth, Other (xerosis) Neurological: Normal speech, Other, Dementia Laboratory Data (last 24 hrs) 07/24/22 14:03: Sodium 125 L, Potassium 2.7 L, BUN 10, Creatinine 0.58, Glucose 115 H 07/24/22 13:36: WBC 4.80, Hgb 14.1, Hct 40.4, Plt Count 169 Conclusions/Impression: A/P) 1. Hyponatremia in the setting of mild hypovolemia, thiazide diuretic use, other -Na level has promptly improved to > 130 on isotonic IVF, rate of correction acceptable. Keep off HCTZ, did d/c IVF 2. Hypokalemia, severe in the setting of thiazide diuretic use, possible poor intake, other. Repleting, did d/c IV lasix ordered by admitting team and will place on Spironolactone for K retention and as a gentle diuretic for any diastolic dysfunction 3. Chronic HTN -BP mod elevated post IVF, will resume lower dose ACEi 4. Dizziness per reports -likely multifactorial and in the setting of the above mentioned, med changes made. Cristino Beauchamp MD, PADMINI
[2022-07-25] MEDS: lisinopriL 5 MG TAB PO SCH (13:51)
--- NOTE | 2022-07-25 15:37 | P.PN ---
Subjective Date of Service: 07/25/22 Primary Care Provider: Sean Chief Complaint: Dyzziness, hyponatremia, hypokalemia, fall She was seen on rounds this morning alongside bedside RN, Dedra. No acute events overnight per RN. She appears comfortable and is in no acute distress. No further history is available at this time. Review of Systems is unable to be obtained Physical Examination - Vital Signs Temperature: 97.4 F Blood Pressure: 144/70 Pulse: 96 Respirations: 16 Pulse Ox (%): 95 - Physical Exam General: Alert, In no apparent distress, Oriented x1 HEENT: Atraumatic, Mucous membr. moist/pink, Sclerae nonicteric Neck: JVD not distended Respiratory: Clear to auscultation bilaterally, Normal air movement Cardiovascular: No edema, Regular rate/rhythm, Normal S1 S2, No gallops, No rubs, No murmurs Gastrointestinal: Normal bowel sounds, Soft and benign, Non-distended, No tenderness, No rebound, No guarding Musculoskeletal: No clubbing Integumentary: No rashes Neurological: Normal speech, Normal affect, Dementia Assessment And Plan - Plan # Generalized Weakness complicated by Mechanical Ground-Level Fall # Suspected Urinary Tract Infection - Weakness likely multifactorial from dehydration, hyponatremia, and UTI - UA = positive nitrite, 1+ leukocyte esterase - Currently without sepsis criteria - Continue ceftriaxone - Consult PT # Hypovolemic Hyponatremia # Hypokalemia - Nephrology consulted and spoke with Dr. Beauchamp - recommendations appreciated - Hold hydrochlorothiazide - Replace potassium as needed - IV fluids per Neph # Hypertension - Continue lisinopril, spironolactone # Alzheimer's Dementia - Reconcile home medications once verified Edwin Ewing M.D.
[2022-07-26] MEDS: ALBUTEROL 2.5 MG/3 ML NEB SOL NEB SCH ×4 (01:25→20:00)
[2022-07-26 07:08] LABS: Potassium 3.2 mEq/L (3.5-5.1)
[2022-07-26] MEDS ORDERED: POTASSIUM 25 MEQ EFFERV TAB PO ONE (09:00)
[2022-07-26] MEDS: CEFTRIAXONE 1,000 MG in NA CHLORIDE 0.9% 50 ML IVPB SCH ×2 (09:09→19:59)
[2022-07-26] MEDS: ENOXAPARIN 40 MG/0.4 ML SQ SCH (09:09)
[2022-07-26] MEDS: lisinopriL 5 MG TAB PO SCH (09:18)
[2022-07-26] MEDS: SPIRONOLACTONE 25 MG TABLET PO SCH (09:18)
--- NOTE | 2022-07-26 10:46 | P.PN ---
Subjective Date of Service: 07/26/22 Primary Care Provider: Sean Chief Complaint: Dyzziness, hyponatremia, hypokalemia, fall No acute events overnight per RN. She appears comfortable and is in no acute distress. Her sodium levels have improved. Her urine culture returned positive for 4+ gram-negative rods. Awaiting culture + sensitivities. Review of Systems is unable to be obtained Physical Examination - Vital Signs Temperature: 97.7 F Blood Pressure: 138/64 Pulse: 72 Respirations: 20 Pulse Ox (%): 97 Assessment And Plan - Plan - Physical Exam General: Alert, In no apparent distress, Oriented x1 HEENT: Atraumatic, Mucous membr. moist/pink, Sclerae nonicteric Neck: JVD not distended Respiratory: Clear to auscultation bilaterally, Normal air movement Cardiovascular: No edema, Regular rate/rhythm, No murmurs Gastrointestinal: Normal bowel sounds, Soft, Non-distended, No tenderness Musculoskeletal: No clubbing Integumentary: No rashes Neurological: Normal speech, Normal affect, Dementia # Generalized Weakness complicated by Mechanical Ground-Level Fall # Gram-Negative Urinary Tract Infection - Weakness likely multifactorial from dehydration, hyponatremia, and UTI - Currently without sepsis criteria - UA = positive nitrite, 1+ leukocyte esterase - UCx = 4+ gram-negative rods - awaiting speciation + sensitivities - Continue ceftriaxone - narrow once sensitivities return - Consult PT # Hypovolemic Hyponatremia - improved # Hypokalemia - Nephrology consulted and spoke with Dr. Beauchamp - recommendations appreciated - Hold hydrochlorothiazide - Replace potassium as needed - IV fluids per Neph # Hypertension - Continue lisinopril, spironolactone # Alzheimer's Dementia - Reconcile home medications once verified Edwin Ewing M.D.
[2022-07-27] MEDS: ALBUTEROL 2.5 MG/3 ML NEB SOL NEB SCH ×2 (01:30→08:20)
[2022-07-27 03:55] LABS: Magnesium 2.3 mg/dL (1.6-2.4); Phosphorus 3.3 mg/dL (2.5-4.9); Potassium 3.5 mEq/L (3.5-5.1)
[2022-07-27] MEDS ORDERED: POTASSIUM CL SA 10 MEQ TAB PO ONE (09:00)
[2022-07-27] MEDS: ENOXAPARIN 40 MG/0.4 ML SQ SCH (09:16)
[2022-07-27] MEDS: CEFTRIAXONE 1,000 MG in NA CHLORIDE 0.9% 50 ML IVPB SCH (09:17)
[2022-07-27] MEDS: SPIRONOLACTONE 25 MG TABLET PO SCH (09:17)
[2022-07-27] MEDS: lisinopriL 5 MG TAB PO SCH (09:18)
[2022-07-27 12:18] VITALS: O2SAT 92
[2022-07-27 13:29] VITALS: BP 145/79; TEMP 97
--- NOTE | 2022-07-27 17:42 | EKG ---
Test Date: 2022-07-24 Test Time: 13:06:55 Consumer Loan Officer: BLACK MEASUREMENT RESULTS: Intervals: Rate: 56 MT: 224 QRSD: 114 QT: 520 QTc: 501 [place]: P: 87 MT: 224 QRS: -70 T: 35 INTERPRETIVE STATEMENTS: Sinus bradycardia with 1st degree AV block Pulmonary disease pattern Left anterior fascicular block Prolonged QT Abnormal ECG No previous ECG available for comparison Electronically Signed On 07-27-22 17:37:10 CDT by Donta Fair
--- NOTE | 2022-07-27 21:56 | P.PN ---
Date of Service: 07/27/22 Vital Signs Temp Pulse Resp BP Pulse Ox 97.0 F 97 H 18 145/79 H 92 07/27/22 12:00 07/27/22 12:00 07/27/22 12:00 07/27/22 12:00 07/27/22 12:00 Microbiology Results 07/24/22 16:05 Clean Catch Urine [place] Count - Final >100,000 CFU/ML. 07/24/22 16:05 Clean Catch Urine - Final Klebsiella Pneumoniae Assessment/ Plan: Nephrology No dyspnea No chest pain No acute events overnight Vitals, medications, blood work and imaging reviewed in the chart. NAD. NCAT. MMM. Neck supple. Normal respiratory effort. RRR. Abd ND. No C/C. LE Edema. No rash. AAO. Normal speech. Hyponatremia -Continue IVF -Encourage nutrition Hypokalemia -Replete potassium as ordered HTN -Continue Lisinopril Hyperglycemia -No sugar diet Acute infective cystitis -Continue abx
== END 2022-07-27 15:04 | DRG 641 ==
LOC: ER 12:32 → ERHOLD 16:21 → 2ND 18:12 → OBSVTOIN 07-26 13:12
PROVIDERS: ADMIT Internal Medicine; ATTEND Hospitalist
DX: E87.1 Hypo-osmolality and hyponatremia (principal); N30.00 Acute cystitis without hematuria; E87.6 Hypokalemia; I10 Essential (primary) hypertension; G30.9 Alzheimer's disease, unspecified; F02.80 Dementia in other diseases classified elsewhere, unspecified severity, without behavioral disturbance, psychotic disturbance, mood disturbance, and anxiety; S09.90XA Unspecified injury of head, initial encounter; T50.2X5A Adverse effect of carbonic-anhydrase inhibitors, benzothiadiazides and other diuretics, initial encounter; B96.89 Other specified bacterial agents as the cause of diseases classified elsewhere; R73.9 Hyperglycemia, unspecified; Z88.5 Allergy status to narcotic agent; Z79.02 Long term (current) use of antithrombotics/antiplatelets; Z90.13 Acquired absence of bilateral breasts and nipples; Z90.49 Acquired absence of other specified parts of digestive tract; Z90.710 Acquired absence of both cervix and uterus; Z79.899 Other long term (current) drug therapy; Z20.822 Contact with and (suspected) exposure to COVID-19; W01.0XXA Fall on same level from slipping, tripping and stumbling without subsequent striking against object, initial encounter; Y92.10 Unspecified residential institution as the place of occurrence of the external cause
CPT/HCPCS: 36415; 70450; 71045; 72125; 80048; 81001; 81003; 82947; 83735; 83880; 84100; 84132; 84484; 85025; 87077; 87086; 87088; 87186; 87811; 93005; 94640; 96360; 96361; 97116; 97161; 97530; 99285; G0378; J1650; J1940; J2920; J3480; J7030; J7613; J7644; U0003

== ENCOUNTER 2022-07-27 18:17 | Emergency (ER) | payer OTHER ==
--- OUTSIDE RECORDS SUMMARY | 2022-07-27 18:20 | XMS REPORT | Continuity of Care Document ---
:[address] [facility] t Address [address] [place] [address] Care Team Providers Name Role Phone ISABELLE MILES MD Primary Care Physician Anna Enrique RN Attending Clinician KEYONNA YUAN Attending Clinician Unavailable UNKNOWN, ATTENDING Attending Clinician Unavailable Zoe Patterson Attending Clinician Catherine Guerra Attending Clinician MAGGY FRANCO Attending Clinician Unavailable Payers Payer Name Policy Type Policy Effective Date Expiration Date Sour ce Number AETNA MEDICARE [id number] 2019 ADV 00:00:00 [employer]et[employer] Medicare [id number] [address] [facility] Replacement [facility]00 [facility] Problems Condition Condition Condition Status Onset Resolution Last Treating Co mments Source Name Details Category Date Date Treatment Clinician Date Pneumonia Pneumonia Disease Active 2020-0 Uni vers due to due to 11-13 ity of COVID-19 COVID-19 00:00: [place] virus virus [facility] Essential Essential Disease Active 2020-0 Uni vers hypertensi hypertensi 11-13 it y of on on 00:00: [place] [facility] [place] Other Other Disease Active 2020-0 Univers hyperlipid hyperlipid 11-13 it y of emia emia 00:00: [place] [facility] Hypoxia Hypoxia Disease Active 2020-0 Univers 7-06 ity of 00:00: [place] 00 Medical Branch Acute Acute Disease Active [facility] respirator respirator 7-06 it y of y failure y failure 00:00: [place] with with 00 Medical hypoxia hypoxia Branch Breast Breast Disease Active Overview: Univer s cancer cancer s/p ity of double [place] mastectom Medical y Branch No known No known Disease Unive rs active active ity of problems problems [facility] 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) Active Diagnosis 09/22/2018 Vamshi Meyers 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 Jeovanny extremitie extremitie s with s with other other complicati complicati ons ons Active Diagnosis 09/22/2018 Vamshi Meyers 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 Active Problem 09/22/2018 Vamshi Meyers 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 Active Problem 09/22/2018 Vamshi Meyers Essential Essential Diagnosis Active 2018-09-22 Memoria hypertensi hypertensi 02:45:19 l on on Active [facility] Diagnosis 09/22/2018 Vamshi Meyers Palpitatio Palpitati Diagnosis Active 2018-09-22 Memoria ns ons Active 02:45:19 l Diagnosis Jeovanny 09/22/2018 Vamshi Meyers Abnormal Abnormal Diagnosis Active 2018-09-22 Memoria EKG EKG Active 02:45:19 l Diagnosis Adam n 09/22/2018 Vamshi Meyers Venous Venous Diagnosis Active 2018-09-22 Me moria insufficie insufficie 02:45:19 l ncy ncy Active Adam n Diagnosis 09/22/2018 Vamshi Meyers Precordial Diagnosis Active 2018-09-22 Memoria pain Precordial 02:45:19 l pain Jeovanny Active Diagnosis 09/22/2018 Vamshi Meyers Non morbid Non Diagnosis Active 2018-09-22 Memoria obesity morbid 02:45:19 l due to obesity [facility] excess due to calories excess calories Active Diagnosis 09/22/2018 Vamshi 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 Active Problem 09/22/2018 Vamshi Meyers Exertional Exertiona Problem Active 2018-09-22 Memoria dyspnea l dyspnea 02:45:19 l Active Jeovanny Problem 09/22/2018 Vamshi Meyers 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 02:45:19 l Active Jeovanny Problem 09/22/2018 Vamshi Meyers History of History Problem Active 2018-09-22 Memoria NH of NH 02:45:19 l (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 ) ) Active Problem 09/22/2018 Vamshi Meyers Patient Patient Diagnosis Active 2018-09-22 Memoria unable to unable to 02:45:19 l exercise exercise Adam n Active Diagnosis 09/22/2018 Vamshi Meyers 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 rock standing rock Jeovanny 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 without angina angina pectoris pectoris Active Problem 09/22/2018 Vamshi Meyers Allergies, Adverse Reactions, Alerts Allergy Allergy Status Severity Reaction(s) Onset Inactive Treating Comm ents Source Name Type Date Date Clinician Codeine Propensi Active Hallucinatio 2020-0 U nivers ty to ns 11-05 ity of adverse 00:00: [place] reaction 00 Medical s Branch Meperidi Propensi Active Hallucinatio 2020-0 Univers ne ty to ns 11-05 ity of adverse 00:00: [place] reaction 00 Medical s Branch Penicill Propensi Active Hives 2020-0 Univer s in ty to 11-05 ity of adverse 00:00: [place] reaction 00 Medical s Branch CODEINE DRUG Active Hallucinates 2020-0 Uni vers INGREDI 11-05 ity of 00:00: [place] 00 Medical Branch MEPERIDI DRUG Active Hallucinates 2020-0 Un linda NE INGREDI 11-05 ity of 00:00: [place] Medical [facility] PENICILL DRUG Active Hives Univers IN INGREDI 11-05 ity of 00:00: [place] [id number] Medical Branch Metformi Metformi Active Diarrhea Phillip rosa n HCl n HCl 2-22 l 00:00: Codeine Codeine Active Info Not Memori a Available 3-09 l 00:00: Codeine Allergy Active [facility]ES [facility] NO KNOWN Drug Active Univers ALLERGIE Class ity of S [facility] Social History Social Habit Start Date Stop Date Quantity Comments Source Sex Assigned At [facility] Exposure to Yes [facility] Alcohol intake 2019-11-14 2019-11-14 [facility] 00:00:00 00:00:00 [facility] Smoking Status Start Date Stop Date Source Unknown if ever smoked [facility] Former smoker 2019-11-14 00:00:00 2019-11-14 00:00:00 [facility] Medications Ordered Filled Start Stop Current Ordering Indication Dosage Frequency Signature Comments Components Source Medication Medication Date Date Medication? Clinician (SIG) Name Name aspirin 81 2019-0 Yes [id number] 81mg Take 1 Univers mg chewable 7-10 tablet by ity of tablet 00:00: mouth [place] 00 daily with Medical breakfast. Branch cholecalcif 2019-0 Yes [id number] 2000U Take 2 Univers arthur, 7-10 tablets by ity of vitamin D3, 00:00: mouth [place] 25 mcg 00 daily. Medical (1,000 Branch unit) tablet busPIRone 2019-0 Yes 15mg Take 15 mg Un linda 15 mg 7-09 by mouth 2 ity of tablet 23:10: (two) [place] 37 times Medical daily. Branch clopidogreL 2019-0 Yes 75mg Take 75 mg Univers 75 mg 7-09 by mouth ity of tablet 23:10: daily. [address] omeprazole 2019-0 Yes 20mg Take 20 mg U nivers 20 mg 7-09 by mouth ity of capsule 23:10: daily. [address] metoprolol 2019-0 Yes 12.5mg Take 12.5 [...] times Medical daily. Branch ascorbic 2020-0 Yes [id number] 500mg Take 1 U nivers acid, 7- tablet by ity of vitamin C, 00:00: mouth [place] 500 mg 00 daily. Medical tablet Branch lactobacill 2020-0 Yes [id number] 1{tbl} Take 1 Univers us 7- tablet by ity of acidophilus 00:00: mouth 2 Félix as 25 million 00 (two) Medical cell -100 times Branch mg captab daily. zinc 2020-0 Yes [id number] 220mg Take 1 Unive rs sulfate 220 - capsule by it y of (50) mg 00:00: mouth [place] capsule 00 daily. Medical Branch dexAMETHaso 2020-0 Yes [id number] 4mg Take 1 Univers ne 4 mg 7- tablet by ity of tablet 00:00: mouth [place] 00 daily. Medical Branch KCL 20 mEq 2020-0 2020- No [id number] 40meq Take 2 Univers tablet 11-15 07-15 tablets by ity of 00:00: 04:59 mouth [place] 00 :00 daily for Medical 5 days. Branch albuterol 2019-0 Yes [id number] 2{puff} Inhale 2 Univers 90 6-29 Puffs ity of mcg/actuati 00:00: every 6 Félix as on inhaler 00 (six) Medical hours as Branch needed for Shortness of Breath. albuterol 2020-0 Yes [id number] 2{puff} Inhale 2 Univers 90 6-29 Puffs ity of mcg/actuati 00:00: every 6 Félix as on inhaler 00 (six) Medical hours as Branch needed for Shortness of Breath. albuterol Yes [id number] 2{puff} Inhale 2 Univers 90 6-29 Puffs ity of mcg/actuati 00:00: every 6 Félix as on inhaler 00 (six) Medical hours as Branch needed for Shortness of Breath. albuterol Yes [id number] 2{puff} Inhale 2 Univers 90 6-29 Puffs ity of mcg/actuati 00:00: every 6 Félix as on inhaler 00 (six) Medical hours as Branch needed for Shortness of Breath. Escitalopra Yes Mohamed 1 tablet Memoria m Oxalate 5-16 Jeroudi l 02:45: [id number] Yes Mohamed not Phillip rosa 5-16 Jeroudi defined l 02:45: Aspirin Yes Mohamed 1 tablet Mem oria Adult Low 5-16 [place]i l Strength 02:45: Oxybutynin Yes Mohamed 1 tablet Memoria Chloride 5-16 [place] l 02:45: Levocetiriz Yes Mohamed 1 tablet Memoria ine 5-16 [place]i in the l Dihydrochlo 02:45: evening Her [facility] [address] 19 Lisinopril- Yes Mohamed 1 tablet Memoria Hydrochloro 5-16 Jeroudi l thiazide 02:45: Escitalopra Yes Mohamed 1 tablet Memoria m Oxalate 5-16 [place]oudi l 02:45: [id number] Yes Mohamed not Phillip rosa 5-16 [place]oudi defined l 02:45: Aspirin Yes Mohamed 1 tablet Mem oria Adult Low 5-16 [place] l Strength 02:45: Oxybutynin 2018- Yes Mohamed 1 tablet Memoria Chloride 5-16 [place]oudi l 02:45: Levocetiriz 2018- Yes Mohamed 1 tablet Memoria ine 5-16 [place]i in the l Dihydrochlo 02:45: evening Her [facility]ern[address] ride 19 Lisinopril- 2019-0 Yes Mohamed 1 tablet Memoria Hydrochloro 5-16 [place]i l thiazide 02:45: Jeovanny Plavix 2019-0 Yes Mohamed 1 tablet Phillip rosa 5-16 [place]i l 02:45: Jeovanny Metoprolol 2019-0 Yes Mohamed 1/2 half Memoria Tartrate 5-16 Jeroudi tablet l 02:45: [place] Atorvastati Yes Mohamed 1 tablet Memoria n Calcium 5-16 Jeroudi l 02:45: Jeovanny Plavix 2018-0 Yes Mohamed 1 tablet Phillip rosa 5-16 [place]oudi l 02:45: Jeovanny Metoprolol 2018- Yes Mohamed 1/2 half Memoria Tartrate 5-16 Jeroudi tablet l 02:45: Jeovanny Atorvastati 2018- Yes Mohamed 1 tablet Memoria n Calcium 5-16 [place]i l 02:45: [place] BusPIRone Yes Ahmad 1 tablet Mem oria HCl 5-16 [place]i l 02:45: Jeovanny BusPIRone 2018-0 Yes Ahmad 1 tablet Mem oria HCl 5-16 [place]i l 02:45: Jeovanny Liu Oxybutynin Yes Mohamed 1 tablet Memoria Chloride 9-02 Jeroudi l 02:46: Jeovanny Good Oxybutynin 2016-0 Yes Mohamed 1 tablet Memoria Chloride 9-02 Jeroudi l 02:46: Jeovanny Good Venlafaxine 2017- Yes Mohamed 1 capsule Memoria HCl ER - Jeroudi with food l 02:46: Jeovanny 44 Venlafaxine 2017-0 Yes Mohamed 1 capsule Memoria HCl ER - Jeroudi with food l 02:46: Jeovanny 44 Omeprazole 2016-0 Yes Mohamed 1 capsule Memoria 9-02 Jeroudi l 02:46: Jeovanny 44 GlipiZIDE 2016-0 Yes Mohamed 1 tablet M emoria ER - Jeroudi l 02:46: Jeovanny Good Losartan 2016-0 Yes Mohamed 1 tablet Me moria Potassium-H - Jeroudi l CTZ 02:46: Jeovanny Good Z30-[id number] Yes Mohamed not Phillip rosa 9-02 Jeroudi defined l 02:46: [facility] 44 Aspirin Yes Mohamed 1 tablet Mem oria Adult Low 01-09 Jeroudi l Strength 02:46: [facility] 44 Omeprazole Yes Mohamed 1 capsule Memoria 01-09 Jeroudi l 02:46: 44 GlipiZIDE Yes Mohamed 1 tablet M emoria ER 01-09 Jeroudi l 02:46: 44 Losartan Yes Mohamed 1 tablet Me moria Potassium-H 01-09 Jeroudi l CTZ 02:46: 44 [id number] Yes Mohamed not Phillip rosa 01-09 Jeroudi defined l 02:46: 44 Aspirin Yes Mohamed 1 tablet Mem oria Adult Low 01-09 Jeroudi l Strength 02:46: 44 Aspirin Aspirin Yes [address] ([facility]) 81 (Valeriano) 81 Antolin es Mg Mg Patient Tablet. Tablet. Medic al Center Gabapentin Gabapentin Yes [address] 300 Mg 300 Mg [facility] Capsule Capsule Patient [facility] Lansoprazol Lansoprazol Yes 1 Daily [facility] [...] Day [facility] Mg Tablet Mg Tablet [facility] Metformin Metformin Yes Daily [facility] Hcl 1,000 Hcl 1,000 [facility] Mg Tablet Mg Tablet [facility] Oxybutynin Oxybutynin Yes [facility] Chloride 5 Chloride 5 Antolin es Mg Tablet Mg Tablet [facility] Oxybutynin Oxybutynin Yes Twice A [facility] Chloride Chloride Day [facility] (Ditropan (Ditropan [facility] Xl) 5 Mg Xl) 5 Mg Medical Tab.er.24 Tab.er.24 Cente r Venlafaxine Venlafaxine Yes Daily [facility] Hcl Hcl [facility] (Effexor (Effexor Patient Xr) 75 Mg Xr) 75 Mg Medic al Cap.er.24h Cap.er.24h Tess ter Darifenacin Darifenacin No Daily [facility] Hydrobromid Hydrobromid -10 [facility] [...] Observation Value Comments Source Weight 2018-02-22 19:30:00 [facility] 2018-02-22 [facility]:30[facility] Oral (F) 2018-02-22 19:30:00 97.4 F [facility] Heart Rate 2018-02-22 19:30:00 [facility] Diastolic (mm Hg) 2018-02-22 19:30:00 Mem orial [facility] Systolic (mm Hg) 2018-02-22 19:30:00 Phillip rial [facility] Weight 2017-11-22 20:00:00 [facility] Height 2017-11-22 20:00:00 [facility] Temperature Oral (F) 2017-11-22 20:00:00 98.2 F [facility] Jeovanny Heart Rate 2017-11-22 20:00:00 [facility] Jeovanny Diastolic (mm Hg) 2017-11-22 20:00:00 Mem orial Jeovanny Systolic (mm Hg) 2017-11-22 20:00:00 Phillip rial [facility] Weight 2017-08-02 19:00:00 [facility] Jeovanny Height 2017-08-02 19:00:00 [facility] Temperature Oral (F) 2017-08-02 19:00:00 98.3 F [facility] Jeovanny Heart Rate 2017-08-02 19:00:00 [facility] Jeovanny Diastolic (mm Hg) 2017-08-02 19:00:00 Mem orial Jeovanny Systolic (mm Hg) 2017-08-02 19:00:00 Phillip rial [facility] Weight 2017-07-01 19:30:00 [facility] Height 2017-07-01 19:30:00 [facility] Temperature Oral (F) 2017-07-01 19:30:00 97.6 F [facility] Heart Rate 2017-07-01 19:30:00 [facility] Diastolic (mm Hg) 2017-07-01 19:30:00 Mem orial Jeovanny Systolic (mm Hg) 2017-07-01 19:30:00 Phillip rial [facility] Weight 2015-07-17 18:00:00 [facility] Jeovanny Height 2015-07-17 18:00:00 [facility] Jeovanny Temperature Oral (F) 2015-07-17 18:00:00 96.1 F [facility] Heart Rate 2015-07-17 18:00:00 [facility] Diastolic (mm Hg) 2015-07-17 18:00:00 Mem orial Jeovanny Systolic (mm Hg) 2015-07-17 18:00:00 Phillip rial [facility] Weight 2015-06-27 19:00:00 [facility] Jeovanny Height 2015-06-27 19:00:00 [facility] Temperature Oral (F) 2015-06-27 19:00:00 97.8 F [facility] Jeovanny Heart Rate 2015-06-27 19:00:00 [facility] Diastolic (mm Hg) 2015-06-27 19:00:00 Mem orial [facility] Systolic (mm Hg) 2015-06-27 19:00:00 Phillip rial Jeovanny Procedures Procedure Date / Time Performed Performing Clinician Sourc e XR CHEST 2 VW COVID 2019-11-06 14:41:41 Catherine Long [facility] Magnetic resonance 2017-09-10 00:00:00 MAGGY FRANCO [facility] spine without contrast Encounters Start End Encounter Admission Attending Care Care Encounter Source Date/Time Date/Time Type Type Clinicians Facility Department ID 2022-07-27 Outpatient [id number] Memoria 18:19:26 [id number] Jeovanny [id number] 2022-07-24 Outpatient [id number] Memoria 12:34:41 [id number] Jeovanny [id number] 2021-03-07 Emergency [facility] [id number] Univers 04:54:20 ity [facility] 2019-11-17 2019-11-17 Transition Adele Enrique [id number] Univers 00:00:00 00:00:00 of Care Anna Whalen [id number] it y [id number] [place] [id number] [address] 2019-11-17 2019-11-17 Transition Adele Enrique [id number] 00:00:00 00:00:00 of Care Anna Whalen [id number] [place] [id number] [id number] [facility] 2019-11-13 2019-11-13 Outpatient R KEYONNA YUAN [facility] [id number] Univers 16:00:00 16:00:00 ity [facility] 2019-11-13 2019-11-13 Outpatient R LAURA, [facility] [id number] Univers 13:15:00 13:15:00 ATTENDING ity [facility] 2019-11-07 2019-11-07 Telephone Kaity [facility] [id number] Univers 00:00:00 00:00:00 Rania HEALTH [id number] it y of [place] 4.2.7.2.686 [facility] [phone] [facility] Primary & [facility] Branch Specialty Care 2019-11-07 2019-11-07 Telephone Ebrakym, [facility] [id number] Univers 00:00:00 00:00:00 Rania HEALTH [id number] it y of [place] 4.2.7.2.686 [facility] [id number] [facility] Branch Specialty Care 2019-11-07 2019-11-07 [facility], [facility] [id number] 00:00:00 00:00:00 Rania HEALTH [id number] [place] 4.2.7.2.68[facility] [id number] Primary & 370 Specialty Care 2019-11-07 2019-11-07 Telephone [facility], [facility] [id number] 00:00:00 00:00:00 Rania HEALTH [id number] [place] 4.2.7.2.68[facility] [id number] Primary & 370 Specialty Care 2019-11-06 2019-11-06 [facility] [id number] [facility] 09:26:00 23:59:00 Encounter ayemi Health [id number] [place] [facility] [id number] [facility] [id number] [address] ([facility]) 2019-11-06 2019-11-06 [facility] 1.2.840.114 [id number] 09:26:00 23:59:00 Encounter [facility] Health [id number] [place] [address] [place] [phone] ([facility]) 2019-11-06 2019-11-06 Outpatient Radhika SANCHEZ, [facility] [id number] Univers 09:00:00 09:00:00 ATTENDING ity of [facility] 2018-02-22 2018-02-22 Outpatient Mohamed O Mohamed O [id number] [facility]inic 14:30:00 14:30:00 Mira [place] 2018-01-24 2018-02-06 Discharged [facility] [id number] 10:07:00 23:59:[address] [facility] 2017-11-22 2017-11-22 Outpatient Vamshi O Vamshi O [id number] [facility]inic 15:00:00 15:00:00 Mria DE [place] 2017-11-11 2017-11-11 Outpatient Vamshi O Vamshi O [id number] eClinic 16:27:00 16:27:00 Mira [place] 2017-09-10 2017-09-10 Registered HANSA FRANCO, [facility] [id number] 13:32:00 13:32:00 Clinic EDWARD 74 [facility] 2017-08-02 2017-08-02 Outpatient Vamshi O Vamshi O [id number] eClinic 14:00:00 14:00:00 Mira [place] 2017-07-01 2017-07-01 Outpatient Vamshi O Vamshi O [id number] [facility]Clinic 14:30:00 14:30:00 Mira [place] 2015-07-17 2015-07-17 Outpatient Vamshi O Vamshi O [id number] [facility]inic 13:00:00 13:00:00 Mira [place] 2015-06-27 2015-06-27 Outpatient Vamshi O Vamshi O [id number] [facility]Clinic 14:00:00 14:00:00 Mira DE [place] Results Test Test Test Results Result Source Description Time Comments Comments XR CHEST 2 VW 2019-10 Trace bilateral pleural University COVID -29 effusions. Disclaimer: of [place] 20:46:2 Generally, the findings on Medical 2 chest imaging in COVID-19 are Branch notspecific, and overlap with other infections, including influenza, H1N1,SARS and MERS.According to the Centers for Disease Control (CDC) and recent statement ofthe [employer], viral testing remains the [...] Disease Control (CDC) and recent statement ofthe [employer], viral testing remains the only specificmethod of diagnosis. Confirmation with the viral test is required, even ifradiologic findings are suggestive of COVID-[address]Preliminary Report Dictated by Resident: Martina Arana MD., have reviewed this study and agree with theabove report. MRI SPINE [place] [address] Patient Name: CALIXTO LANG MR #: [id number] : 1940 Age/Sex: 76/F Req #: [id number] Adm Physician: Ordered by: MAGGY FRANCO MD Report #: [id number] Location: MRI Room/Bed: Procedure: [id number] MRI/MRI SPINE LUMBAR WO Exam Date: Exam [...]
--- NOTE | 2022-07-27 19:42 | RAD REPORT ---
EXAM DESCRIPTION: CT - Head Brain Wo Cont - 07/27/2022 7:31 pm CLINICAL HISTORY: Alteration of awareness/confusion COMPARISON: July 24, 2022 TECHNIQUE: Computed axial tomography of the head was obtained. IV contrast was not requested. All CT scans are performed using dose optimization technique as appropriate and may include automated exposure control or mA/KV adjustment according to patient size. FINDINGS: An intracranial bleed is not seen The ventricles are normal in caliber No extra-axial fluid collection is noted. No significant hypodensity within the brain. Acute and chronic sinusitis present IMPRESSION: No acute intracranial abnormality is seen If patient's symptoms persist MRI of the brain would be recommended
--- NOTE | 2022-07-27 20:11 | RAD REPORT ---
EXAM DESCRIPTION: Tami Single View07/27/2022 7:44 pm CLINICAL HISTORY: Shortness of breath COMPARISON: June 2022 FINDINGS: The lungs appear clear of acute infiltrate. The heart is mildly enlarged IMPRESSION: No acute abnormalities displayed
[2022-07-27 20:58] LABS: Absolute Lymphocytes (CBC) 2.4 K/uL (0.7-4.9); Hematocrit 46.4 % (36.0-45.0); Lymphocytes % 26.5 % (15.3-44.8); MCV 92.6 fL (80-100); MPV 7.6 fL (7.6-11.3); RBC Red Blood Cell Count 5.02 M/uL (3.86-4.86)
[2022-07-27 21:08] LABS: Magnesium 2.3 mg/dL (1.6-2.4); Troponin High Sensitivity 10.4 pg/mL (<58.9)
[2022-07-27 21:17] LABS: Specific Gravity 1.028 (1.005-1.030); Urine Bacteria None Seen /HPF (<20); Urine Bilirubin NEGATIVE (Negative); Urine Blood Negative (Negative); Urine Clarity Clear (Clear); Urine Color Yellow (Yellow); Urine Crystals Unidentified Few /HPF (None Seen); Urine Glucose NEGATIVE (Negative); Urine Mucus Slight /HPF (None Seen); Urine Protein 1+ (Negative); Urine RBC <5 /HPF (None Seen); Urine Urobilinogen Normal (Normal); Urine pH 7.5 (5.0-7.0)
--- NOTE | 2022-07-27 22:14 | EDPHYS ---
Physician Documentation [facility] Name: Deborah Dmuont Age: 81 yrs Sex: Female : 1940 Arrival Date: 07/27/2022 Time: 18:24 Bed 19 Private MD: ED Physician Durga Patricia HPI: 07/27 19:05 This 81 yrs old Female presents to ER via EMS with complaints of Acting Different. cp 19:05 Patient is a 81 y/o female brought to ED by EMS after reportedly "acting different". cp History given to me by ED nurse who received report from EMS. Patient is resident of [place] and reportedly was recently discharged from the hospital today. Patient reportedly got up from bed and was found in dining murillo eating of custodial. Patient reportedly needs assistance with ambulation. 19:05 Attempt to contact [facility]. No answer. cp Historical: - Allergies: 18:29 Codeine; ap3 - PMHx: 18:29 Alzheimer's disease; Dementia; Hypertensive disorder; Diabetes mellitus; insomnia; ap3 Sleep apnea; Gastroesophageal reflux disease; Hypercholesterolemia; - Immunization history:: Client reports receiving the 2nd dose of the Covid vaccine. - Social history:: Smoking status: unknown. ROS: 19:10 Constitutional: Negative for fever. cp 19:10 Cardiovascular: Negative for chest pain. cp 19:10 Abdomen/GI: Negative for abdominal pain. 19:10 Unable to obtain ROS due to baseline dementia. Exam: 19:15 Constitutional: The patient appears in no acute distress, alert, awake, cp non-diaphoretic, non-toxic, well developed, well nourished. 19:15 Head/Face: Normocephalic, atraumatic. cp 19:15 Eyes: Periorbital structures: appear normal, Pupils: equal, round, and reactive to light and accomodation, Conjunctiva: normal, no exudate, no injection, Sclera: no appreciated abnormality, Lids and lashes: appear normal, bilaterally. 19:15 ENT: External ear(s): are unremarkable, Ear canal(s): are normal, clear, TM's: dullness, bilaterally, Nose: is normal, Mouth: Lips: moist, Oral mucosa: moist, Posterior pharynx: is normal, airway is patent, no erythema, no exudate. 19:15 Neck: C-spine: vertebral tenderness, is not appreciated, crepitus, is not appreciated. 19:15 Chest/axilla: Inspection: normal, Palpation: is normal, no crepitus, no tenderness. 19:15 Cardiovascular: Rate: normal, Rhythm: regular, Edema: is not appreciated, JVD: is not appreciated. 19:15 Respiratory: the patient does not display signs of respiratory distress, Respirations: normal, no use of accessory muscles, no retractions, labored breathing, is not present, Breath sounds: are clear throughout, no decreased breath sounds, no stridor, no wheezing. 19:15 Abdomen/GI: Inspection: abdomen appears normal, Bowel sounds: active, all quadrants, Palpation: abdomen is soft and non-tender, in all quadrants. 19:15 Back: pain, is absent. 19:15 Skin: cellulitis, is not appreciated, no rash present. 19:15 Neuro: Orientation: to person, Mentation: confused, Motor: moves all fours. 22:17 ECG was reviewed by the Attending Physician. cp Vital Signs: 18:27 BP 128 / 92; Pulse 93; Resp 21; Pulse Ox 93% on R/A; ap3 18:35 Weight 82.55 kg; ap3 20:07 BP 132 / 77; Pulse 91; Resp 19 S; Pulse Ox 96% on 2 lpm NC; Pain 0/10; lg3 23:20 BP 136 / 77; Pulse 94; Resp 19 S; Pulse Ox 96% on 2 lpm NC; lg3 20:07 Pain Scale: Adult lg3 MDM: 18:50 Patient medically screened. cp 22:12 Data reviewed: vital signs, nurses notes. cp 22:12 Differential diagnosis: CVA, Dementia, Alzheimer disease, metabolic disorder, drug cp effects. Consideration of Admission/Observation Escalation of care including admission/observation considered. Management of patient was discussed with the following: attending ED physician and hospitalistTana. Care significantly affected by the following chronic conditions: Diabetes, Hypertension, dementia/Alzheimer's. ED course: Patient reportedly at baseline mental status. Discharged from [facility] earlier today with a known uti. RX for antibiotic provided. Will discharge back to [place] for continued monitoring. 07/27 19:01 Order name: CBC with Diff; Complete Time: 21:50 cp 07/27 21:50 Interpretation: Normal except: RBC 5.02; HGB 16.5; HCT 46.4. cp 07/27 19:01 Order name: Magnesium; Complete Time: 21:50 cp 07/27 19: Order name: Troponin HS; Complete Time: 21:50 cp 07/27 19:01 Order name: Urinalysis W/Microscopic; Complete Time: 21:50 cp 07/27 21:51 Interpretation: Normal except: UPH 7.5; UPROT 1+; UESTR 75; UWBC 10-20; BYST Trace. cp 07/27 21:21 Order name: Urine Culture EDMS 07/27 19:01 Order name: XRAY Chest (1 view); Complete Time: 21:50 cp 07/27 19:01 Order name: CT Head Brain wo Cont; Complete Time: 20:02 cp 07/27 20:02 Interpretation: Report reviewed. cp 07/27 19: Order name: EKG; Complete Time: 19:02 cp 07/27 19:01 Order name: Cardiac monitoring; Complete Time: 21:07 cp 07/27 19:01 Order name: EKG - Nurse/Tech; Complete Time: 22:15 cp 07/27 19:01 Order name: IV Saline Lock; Complete Time: 20:46 cp 07/27 19:01 Order name: Labs collected and sent; Complete Time: 20:46 cp 07/27 19:01 Order name: O2 Per Protocol; Complete Time: 20:46 cp 07/27 19:01 Order name: O2 Sat Monitoring; Complete Time: 20:46 cp 07/27 19:01 Order name: Cath; Complete Time: 21:06 cp EC:17 Rate is 100 beats/min. Rhythm is regular. MI interval is normal. QRS interval is cp prolonged at 102 msec. QT interval is normal. T waves are Inverted in leads aVR, V2. Interpreted by me. Reviewed by me. Administered Medications: 22:17 Drug: Rocephin IV 1 grams Route: IV; Rate: calculated rate; Site: left forearm; lg3 23:25 Follow up: Response: No adverse reaction; IV Status: Completed infusion; IV Intake: [id number] Disposition Summary: 07/27/22 22:13 Discharge Ordered Location: Home cp Problem: an ongoing problem cp Symptoms: are unchanged cp Condition: Stable cp Diagnosis - UTI/ Urinary tract infection, site not specified cp Followup: cp - With: Private Physician - When: 1 - 2 days - Reason: Recheck today's complaints Discharge Instructions: - Discharge Summary Sheet cp - Urinary Tract Infection, Adult cp Forms: - Medication Reconciliation Form cp - Thank You Letter cp - Antibiotic Education cp - Prescription Opioid Use cp - SBAR form lg3 Signatures: Dispatcher [employer] EDMS Durga Loving PA PA cp Prokisch, Amanda RN RN ap3 Angela Rdz RN RN lg3
--- NOTE | 2022-07-27 22:14 | ER ---
Nurse's Notes [facility] Name: Deborah Dumont Age: 81 yrs Sex: Female : 1940 Arrival Date: 07/27/2022 Time: 18:24 Bed 19 Private MD: Diagnosis: UTI/ Urinary tract infection, site not specified Presentation: 07/27 18:27 Chief complaint: EMS states: they were called to [place] for the patient reportedly ap3 "acting different". The patient had just returned to [place] today from a recent hospital stay for a fall that occurred three days prior. Coronavirus screen: At this time, the client does not indicate any symptoms associated with coronavirus-19. Ebola Screen: No symptoms or risks identified at this time. Initial Sepsis Screen: Does the patient meet any 2 criteria? RR > 20 per min. Does the patient have a suspected source of infection? No. Patient's initial sepsis screen is negative. Risk Assessment: Do you want to hurt yourself or someone else? Patient reports no desire to harm self or others. Onset of symptoms is unknown. 18:27 Method Of Arrival: EMS: [facility] ap3 18:27 Acuity: MUKUND 3 ap3 Triage Assessment: 18:31 General: Appears in no apparent distress. Behavior is calm. Pain: Denies pain. Neuro: ap3 Level of Consciousness is awake, Oriented to pt hx of dementia . Cardiovascular: Patient's skin is warm and dry. Respiratory: Airway is patent Respiratory effort is even, unlabored, Respiratory pattern is regular, symmetrical. Historical: - Allergies: 18:29 Codeine; ap3 - PMHx: 18:29 Alzheimer's disease; Dementia; Hypertensive disorder; Diabetes mellitus; insomnia; ap3 Sleep apnea; Gastroesophageal reflux disease; Hypercholesterolemia; - Immunization history:: Client reports receiving the 2nd dose of the Covid vaccine. - Social history:: Smoking status: unknown. Screenin:32 [facility] ED Fall Risk Assessment (Adult) History of falling in the last 3 months, ap3 including since admission Yes- single mechanical fall (1 pt) Confusion or Disorientation Yes (5 pts) Intoxicated or Sedated No (0 pts) Impaired Gait No (0 pts) Mobility Assist Device Used No (0 pt) Altered Elimination No (0 pt) Score/Fall Risk Level 3 or more points = High Risk. Abuse screen: Denies threats or abuse. Nutritional screening: No deficits noted. Tuberculosis screening: No symptoms or risk factors identified. Assessment: 20:07 General: Appears in no apparent distress. comfortable, Behavior is calm, cooperative. lg3 Pain: Denies pain. Neuro: Varela Agitation-Sedation Scale (RASS): 0 - Alert and Calm Level of Consciousness is awake, obeys commands, history of dementia. Oriented to person. Cardiovascular: No deficits noted. Denies chest pain, shortness of breath, Capillary refill < 3 seconds Clubbing of nail beds is absent JVD is absent Patient's skin is warm and dry. Respiratory: No deficits noted. Airway is patent Respiratory effort is even, unlabored, Respiratory pattern is regular, symmetrical, Breath sounds are clear bilaterally. GI: No deficits noted. No signs and/or symptoms were reported involving the gastrointestinal system. Abdomen is round non-distended, Abd is soft and non tender X 4 quads. : No deficits noted. EENT: No deficits noted. No signs and/or symptoms were reported regarding the EENT system. Derm: No deficits noted. No signs and/or symptoms reported regarding the dermatologic system. Skin is intact, is thin, Skin is dry, Skin is normal, Skin temperature is warm. Musculoskeletal: Circulation, motion, and sensation intact. Range of motion: intact in all extremities. 23:20 Reassessment: Patient appears in no apparent distress at this time. No changes from lg3 previously documented assessment. Patient and/or family updated on plan of care and expected duration. Pain level reassessed. Patient is alert, oriented x 3, equal unlabored respirations, skin warm/dry/pink. Patient denies pain at this time. Vital Signs: 18:27 BP 128 / 92; Pulse 93; Resp 21; Pulse Ox 93% on R/A; ap3 18:35 Weight 82.55 kg; ap3 20:07 BP 132 / 77; Pulse 91; Resp 19 S; Pulse Ox 96% on 2 lpm NC; Pain 0/10; lg3 23:20 BP 136 / 77; Pulse 94; Resp 19 S; Pulse Ox 96% on 2 lpm NC; lg3 20:07 Pain Scale: Adult lg3 ED Course: 18:24 Patient arrived in ED. eb 18:27 Danelle Lo, RN is Primary Nurse. ap3 18:29 Triage completed. ap3 18:32 Arm band placed on right wrist. ap3 18:32 Patient has correct armband on for positive identification. Bed in low position. Call ap3 light in reach. Side rails up X2. vehicle monitor technician on. Pulse ox on. NIBP on. Warm blanket given. 18:50 Durga Loving PA is PHCP. cp 18:50 Durga Patricia MD is Attending Physician. cp 19:32 CT Head Brain wo Cont In Process Unspecified. EDMS 19:39 XRAY Chest (1 view) In Process Unspecified. EDMS 20:46 CBC with Diff Sent. lg3 20:46 Magnesium Sent. lg3 20:46 Troponin HS Sent. lg3 21:06 CBC with Diff Sent. lg3 21:06 Magnesium Sent. lg3 21:06 Troponin HS Sent. lg3 21:06 Inserted saline lock: 22 gauge in left forearm, using aseptic technique. Blood lg3 collected. 21:06 Clark cath inserted, using sterile technique, 16 Fr., by ny, balloon inflated, to lg3 gravity drainage, urine specimen collected. 23:25 No provider procedures requiring assistance completed. IV discontinued, intact, lg3 bleeding controlled, No redness/swelling at site. Pressure dressing applied. Administered Medications: 22:17 Drug: Rocephin IV 1 grams Route: IV; Rate: calculated rate; Site: left forearm; lg3 23:25 Follow up: Response: No adverse reaction; IV Status: Completed infusion; IV Intake: [id number] Medication: 18:33 VIS not applicable for this client. ap3 Intake: 23:25 IV: 10ml; Total: 10ml. lg3 Outcome: 22:13 Discharge ordered by . cp 23:25 Discharged to correction. Report called to Hali leonardo 23:25 Condition: stable 23:25 Discharge instructions given to correction, Instructed on discharge instructions, follow up and referral plans. Demonstrated understanding of instructions, follow-up care. 23:26 Patient left the ED. lg3 Signatures: Dispatcher [employer] EDMS Durga Loving PA PA cp Prokisch, Amanda RN RN ap3 Geeta Leon Lacie, RN RN 3
[2022-07-27] MEDS ORDERED: CEFTRIAXONE 1000 MG/VIAL ONE (22:21)
--- NOTE | 2022-07-28 12:58 | EKG ---
Test Date: 2022-07-27 Test Time: 22:12:08 Bicycle Racer: MEASUREMENT RESULTS: Intervals: Rate: 100 MS: 196 QRSD: 102 QT: 370 QTc: 477 [place]: P: 73 MS: 196 QRS: -82 T: 72 INTERPRETIVE STATEMENTS: Normal sinus rhythm Left anterior fascicular block Anterolateral infarct, age undetermined Abnormal ECG Compared to ECG 07/24/2022 13:06:55 Myocardial infarct finding now present Sinus bradycardia no longer present First degree AV block no longer present Prolonged QT interval no longer present Electronically Signed On 07-28-22 12:57:57 CDT by Donta Fair
== END 2022-07-27 23:26 | disposition home or self-care (01) ==
LOC: ER 18:17
DX: N39.0 Urinary tract infection, site not specified (principal); G30.9 Alzheimer's disease, unspecified; F02.80 Dementia in other diseases classified elsewhere, unspecified severity, without behavioral disturbance, psychotic disturbance, mood disturbance, and anxiety; I10 Essential (primary) hypertension; Z88.5 Allergy status to narcotic agent
CPT/HCPCS: 36415; 70450; 71045; 81001; 83735; 84484; 85025; 87086; 87088; 93005

== ENCOUNTER 2024-06-30 17:58 | Emergency (ER) | payer OTHER ==
--- NOTE | 2024-06-30 19:04 | RAD REPORT ---
EXAMINATION: CT HEAD WITHOUT CONTRAST CT CERVICAL SPINE WITHOUT CONTRAST CLINICAL INDICATION: Female, 83 years old. fall x 2 TECHNIQUE: Axial CT images from the skull base to the vertex without intravenous contrast. Axial CT i mages through the cervical spine were obtained without intravenous contrast. Sagittal and coronal reformatted images were created from the data set. Coronal and sagittal reformatted images were creat ed from the data set. One or more of the following dose reduction techniques were used: Automated exposure control, adjustment of the mA and/or kV according to patient size, and/or iterative reconstr uction. Unless otherwise specified, incidental findings do not require dedicated imaging follow-up. [id number]. COMPARISON: 07/24/2022 FINDINGS: Head: INTRACRANIAL: No acute intracranial hemorrhage. No hydrocephalus. No mass effect or midline shift. No significant white matter diseaseMild cerebral atrophy. VASCULATURE: No visualized abnormalities in the arteries or dural venous sinuses. SCALP/SKULL: No significant soft tissue or osseous abnormalities. SINUSES: Dense contents in the right maxillary sinus which is chronic. This is likely inspissated sec retions. Cervical spine: ALIGNMENT: 2 mm anterolisthesis of C2 on C3. Trace retrolisthesis of C3 on C4. BONE: Vertebral body heights are maintained. No aggressive osseous lesions. DEGENERATIVE CHANGES: Multilevel degenerative disc disease with varying degrees of neural foraminal n arrowing. No high-grade central spinal stenosis. SOFT TISSUE: No significant abnormalities in the soft tissue of the neck. The visualized lung apices are clear. IMPRESSION: No acute intracranial abnormality. No acute fracture or traumatic malalignment of the cervical spine.
--- NOTE | 2024-06-30 19:11 | RAD REPORT ---
EXAM: CT CHEST, ABDOMEN AND PELVIS WITHOUT CONTRAST CLINICAL INDICATION: Female, 83 years old FALL, TRAUMA TECHNIQUE: CT chest, abdomen and pelvis was performed, without IV contrast, as per department protoco l. Axial, sagittal and coronal reconstructions were obtained. One or more of the following dose reduction techniques were used: Automated exposure control, adjustment of the mA and/or kV according to the patient size, and/or iterative reconstruction. Unless otherwise specified, incidental findings do not require dedicated imaging follow-up. [id number]. COMPARISON: No prior exam. FINDINGS: The lack of intravenous contrast limits the sensitivity of this exam for evaluation of solid visceral organs, vascular structures, and retroperitoneum. Chest: LOWER NECK: Visualized thyroid gland and soft tissues are normal. Surgical clips in the right axilla. LUNGS AND AIRWAYS: Airways are clear. No evidence of airspace or interstitial process.No suspicious a nd/or stable pulmonary nodules. PLEURA: No pleural effusion. No pneumothorax. Hemidiaphragms are normally positioned. MEDIASTINUM AND LYMPH NODES: No mediastinal mass or fluid collection. Normal size mediastinal, hilar, and axillary lymph nodes. THORACIC AORTA: No thoracic aortic aneurysm. Atherosclerotic changes are present. PULMONARY ARTERIES: Caliber is within normal limits. HEART: Mild cardiomegaly. No coronary calcifications.Small pericardial effusion. Abdomen/Pelvis UPPER GI: No significant abnormality. LIVER: No significant focal abnormality. GALLBLADDER/BILE DUCTS: No biliary ductal dilatation.? PANCREAS: Atrophy, but otherwise unremarkable. SPLEEN: Unremarkable. ADRENALS: No adrenal masses. KIDNEYS AND URETERS: No hydronephrosis.No suspicious renal mass. ABDOMINAL AORTA AND OTHER VESSELS: Normal caliber aorta and IVC. PERITONEUM: No abnormal free fluid. No free air. LYMPH NODES: No pathologic lymphadenopathy. ABDOMINAL WALL: Surgical clips along the ventral peritoneum. SMALL BOWEL/COLON: Small bowel has normal course and caliber. No colonic wall thickening or pericolon ic inflammatory changes.Moderate stool in the rectum. URINARY BLADDER: Underdistended but grossly unremarkable. REPRODUCTIVE ORGANS: No pathologic process. MUSCULOSKELETAL: Multilevel degenerative changes in the spine. No acute fracture. ADDITIONAL FINDINGS: None. IMPRESSION: No acute or significant abnormalities in the chest, abdomen, or pelvis.
--- NOTE | 2024-06-30 19:17 | ER ---
Nurse's Notes [facility] Name: Deborah Dumont Age: 83 yrs Sex: Female : 1940 Arrival Date: 06/30/2024 Time: 17:58 Bed 15 Private MD: Diagnosis: Unspecified injury of head, initial encounter Presentation: 06/30 18:10 Chief complaint: EMS states: FALL AT [place] F[place] BACKWARDS. HEMATOMA TO TOP OF HEAD. db BASELINE DEMENTIA. RECENTLY TOOK ANTIBIOTICS FOR UTI. Coronavirus screen: Client denies travel out of the [place] in the last 14 days. At this time, the client does not indicate any symptoms associated with coronavirus-19. Ebola Screen: Patient negative for fever greater than or equal to 101.5 degrees Fahrenheit, and additional compatible Ebola Virus Disease symptoms Patient denies exposure to infectious person. Patient denies travel to an Ebola-affected area in the 21 days before illness onset. No symptoms or risks identified at this time. Initial Sepsis Screen: Does the patient meet any 2 criteria? No. Patient's initial sepsis screen is negative. Does the patient have a suspected source of infection? No. Patient's initial sepsis screen is negative. Risk Assessment: Do you want to hurt yourself or someone else? Patient reports no desire to harm self or others. Onset of symptoms was June 30, 2024. Care prior to arrival: Glucose check: 126. 18:10 Method Of Arrival: EMS: [facility] db 18:10 Acuity: MUKUND 3 db Triage Assessment: 18:17 General: Appears in no apparent distress. comfortable, Behavior is calm, cooperative. db Pain: Complains of pain in scalp. Neuro: Level of Consciousness is awake, alert, obeys commands, Oriented to person, DEMENTIA. Historical: - Allergies: 18:17 Codeine; db - PMHx: 18:17 Alzheimer's disease; Dementia; diabetes mellitus; Gastroesophageal reflux disease; db Hypercholesterolemia; Hypertensive disorder; insomnia; Sleep Apnea; - Immunization history:: Adult Immunizations unknown. - Infectious Disease History:: Denies. - Social history:: Smoking status: Patient denies any tobacco usage or history of. - Family history:: not pertinent. - Hospitalizations: : No recent hospitalization is reported. Screenin:42 [facility] ED Fall Risk Assessment (Adult) History of falling in the last 3 months, db including since admission Yes- physiologic fall (2 pts) Confusion or Disorientation No (0 pts) Intoxicated or Sedated No (0 pts) Impaired Gait No (0 pts) Mobility Assist Device Used No (0 pt) Altered Elimination No (0 pt) Score/Fall Risk Level 0 - 2 = Low Risk Oriented to surroundings, Maintained a safe environment. Abuse screen: Denies threats or abuse. Denies injuries from another. Nutritional screening: No deficits noted. Tuberculosis screening: No symptoms or risk factors identified. Primary Survey: 19:27 NO uncontrolled hemorrhage observed. A: The client is awake and alert. The airway is rg5 patent. Breathing/Chest: Spontaneous respiratory effort, equal unlabored respirations, breath sounds clear bilaterally, regular pattern, symmetrical chest rise and fall. Circulation: No external hemorrhage present. Regular and strong central pulse, skin warm/dry/normal color. Disability Client is alert. Exposure/Environment: No obvious injuries are noted at this time. Assessment: 18:41 Reassessment: Patient appears in no apparent distress at this time. Patient and/or db family updated on plan of care and expected duration. Pain level reassessed. Patient is alert, oriented x 3, equal unlabored respirations, skin warm/dry/pink. HARD OF HEARING. 19:15 Reassessment: No changes from previously documented assessment. Patient and/or family rg5 updated on plan of care and expected duration. Pain level reassessed. 19:15 Neuro: Level of Consciousness is awake, alert, obeys commands. Cardiovascular: Denies rg5 chest pain. Respiratory: Airway is patent Trachea midline Respiratory effort is even, unlabored, Respiratory pattern is regular, symmetrical, Breath sounds are clear. GI: No signs and/or symptoms were reported involving the gastrointestinal system. : No signs and/or symptoms were reported regarding the genitourinary system. EENT: No deficits noted. Derm: Skin is fragile, Skin is dry, Skin is normal, Skin temperature is warm. Musculoskeletal: Circulation, motion, and sensation intact. Range of motion: intact in all extremities. Vital Signs: 18:10 BP 104 / 60; Pulse 68; Resp 18; Temp 98.5; Pulse Ox 99% ; Weight 54.43 kg (M); db 18:35 BP 95 / 78; Pulse 76; Resp 18; Pulse Ox 98% on R/A; db 19:30 BP 105 / 71; Pulse 77; Resp 18; Temp 99(O); rg5 [place] Coma Score: 19:27 Eye Response: spontaneous(4). Motor Response: obeys commands(6). Verbal Response: rg5 oriented(5). Total: 15. ED Course: 18:05 Patient arrived in ED. ss 18:05 Richi Damon MD is Attending Physician. rn 18:15 Lian Sanders, RN is Primary Nurse. db 18:17 Triage completed. db 18:17 Arm band placed on Patient placed in an exam room. db 18:42 Patient has correct armband on for positive identification. Bed in low position. Call db light in reach. Side rails up X2. Pulse ox on. NIBP on. Warm blanket given. Pillow given. 18:[address] db 18:57 Chest Abd Pelvis Wo Con In Process Unspecified. EDMS 18:57 Head C Spine Mpr Wo Con In Process Unspecified. EDMS 19:15 No provider procedures requiring assistance completed. rg5 19:21 Julian Dorantes, RN is Primary Nurse. rg5 19:27 Patient maintains SpO2 saturation greater than 95% on room air. rg5 19:46 Report given to ISRA AT [place] SHE IS [facility] TO [facility] TYPE SCREW MACHINE OPERATOR PT. br2 21:15 Patient did not have IV access during this emergency room visit. rg5 Administered Medications: No medications were administered Medication: 18:43 VIS not applicable for this client. db Output: 19:27 Urine: 0ml; Total: 0ml. rg5 Outcome: 19:16 Discharge ordered by . rn 19:27 Patient's length of stay in the Emergency Department was greater than 2 hours. rg5 21:15 Discharged to [facility]. rg5 21:15 Condition: stable 21:15 Discharge instructions given to EMS, 21:36 Patient left the ED. rg5 Signatures: Dispatcher [employer] EDMS Richi Damon MD MD rn Blanchard, Shelby, RN RN Lian Sanders, RN RN db Julian Doarntes, MIA BELLAMY rg5 Paige Brooks RN RN br2
--- NOTE | 2024-06-30 19:17 | EDPHYS ---
Physician Documentation [facility] Name: Deborah Dumont Age: 83 yrs Sex: Female : 1940 Arrival Date: 06/30/2024 Time: 17:58 Bed 15 Private MD: ED Physician Richi Damon HPI: 06/30 18:18 This 83 yrs old Female presents to ER via EMS with complaints of Fall Injury. rn 18:18 Details of fall: The patient fell from an upright position. Onset: The symptoms/episode rn began/occurred today. Associated injuries: The patient sustained injury to the head. Severity of symptoms: At their worst the symptoms were mild, in the emergency department the symptoms are unchanged. It is unknown whether or not the patient has had similar symptoms in the past. Per report patient has fallen twice today. No LOC. Has "bump to top of head". Unknown if blood thinners. Patient reports isolated pain to the head initially but then reports mild lower back pain. No pain to the hips or legs. Historical: - Allergies: 18:17 Codeine; db - PMHx: 18:17 Alzheimer's disease; Dementia; diabetes mellitus; Gastroesophageal reflux disease; db Hypercholesterolemia; Hypertensive disorder; insomnia; Sleep Apnea; - Immunization history:: Adult Immunizations unknown. - Infectious Disease History:: Denies. - Social history:: Smoking status: Patient denies any tobacco usage or history of. - Family history:: not pertinent. - Hospitalizations: : No recent hospitalization is reported. ROS: 18:22 Constitutional: Negative for fever, chills, and weight loss, Neck: Negative for injury, rn pain, and swelling, Cardiovascular: Negative for chest pain, palpitations, and edema, Respiratory: Negative for shortness of breath, cough, wheezing, and pleuritic chest pain, Abdomen/GI: Negative for abdominal pain, nausea, vomiting, diarrhea, and constipation, Back: Positive for lower back pain MS/Extremity: Negative for injury and deformity, Neuro: Positive for headache Exam: 18:22 Constitutional: This is a well developed, well nourished patient who is awake, alert, rn and in no acute distress. Head/Face: Normocephalic, superficial hematoma to top/back of head Eyes: Pupils equal round and reactive to light, extra-ocular motions intact. Neck: No midline cervical tenderness Cardiovascular: Regular rate and rhythm. No pulse deficits. Respiratory: No increased work of breathing, no retractions or nasal flaring. Abdomen/GI: Soft, non-tender Back: No spinal tenderness MS/ Extremity: Pulses equal, no cyanosis. Neurovascular intact. Full, normal range of motion. Equal circumference. Neuro: Awake and alert, GCS 15 Vital Signs: 18:10 BP 104 / 60; Pulse 68; Resp 18; Temp 98.5; Pulse Ox 99% ; Weight 54.43 kg (M); db 18:35 BP 95 / 78; Pulse 76; Resp 18; Pulse Ox 98% on R/A; db 19:30 BP 105 / 71; Pulse 77; Resp 18; Temp 99(O); rg5 [place] Coma Score: 19:27 Eye Response: spontaneous(4). Motor Response: obeys commands(6). Verbal Response: rg5 oriented(5). Total: 15. MDM: 18:05 Medical Screening Exam initiated rn 19:13 Differential diagnosis: closed head injury, contusion, fracture, sprain, strain. Data rn reviewed: vital signs, nurses notes, radiologic studies, CT scan, and as a result, I will discharge patient. Counseling: I had a detailed discussion with the patient and/or guardian regarding the historical points, exam findings, and any diagnostic results supporting the discharge/admit diagnosis, radiology results, the need for outpatient follow up, to return to the emergency department if symptoms worsen or persist or if there are any questions or concerns that arise at home. Special discussion: Based on the patient's history, exam and DX evaluation, there is no indication for emergent intervention or inpatient TX. It is understood by the patient/guardian that if the SXs persist or worsen they need to return immediately for re-evaluation. I discussed with the patient/guardian in detail that at this point there is no indication for admission to the hospital. It is understood, however, that if the symptoms persist or worsen the patient needs to return immediately for re-evaluation. 06/30 18:29 Order name: Chest Abd Pelvis Wo Con; Complete Time: 19:13 EDMS 06/30 18:30 Order name: Head C Spine Mpr Wo Con; Complete Time: 19:13 EDMS Administered Medications: No medications were administered Disposition Summary: 06/30/24 19:16 Discharge Ordered Notes: Location: Home rn Problem: new rn Symptoms: have improved rn Condition: Stable rn Diagnosis - Unspecified injury of head, initial encounter rn Followup: rn - With: Private Physician - When: As needed - Reason: Recheck today's complaints, Re-evaluation by your physician Discharge Instructions: - Discharge Summary Sheet rn - Head Injury, Adult rn - Fall Prevention in the Home, Adult rn Forms: - Medication Reconciliation Form rn - Antibiotic garnishment specialist - Prescription Opioid Use rn - Patient Portal Instructions rn - Leadership Thank You Letter rn Signatures: Dispatcher [employer] Richi Moses MD MD rn Benton, Danielle, RN RN db Corrections: (The following items were deleted from the chart) 18:06 18:06 Head C Spine Cap Wo [id number] ordered. [facility]
[2024-07-01 09:33] VITALS: O2SAT 98
[2024-07-01 09:34] VITALS: BP 105/71; TEMP 99
== END 2024-06-30 21:36 | disposition home or self-care (01) ==
LOC: ER 17:58
DX: S00.83XA Contusion of other part of head, initial encounter (principal); M54.50 Low back pain, unspecified; W18.30XA Fall on same level, unspecified, initial encounter; G30.9 Alzheimer's disease, unspecified; F02.80 Dementia in other diseases classified elsewhere, unspecified severity, without behavioral disturbance, psychotic disturbance, mood disturbance, and anxiety
CPT/HCPCS: 70450; 71250; 72125; 74176; 99284